=== PATIENT | male | born 1950 | race Caucasian/White ===

== ENCOUNTER 2016-07-19 21:10 | Inpatient (IN) ==
--- NOTE | 2016-07-19 21:42 | Emergency Department Note ---
Disposition Clinical Impression: Alcoholic cirrhosis of liver with ascites, Portal hypertension, Thrombosis Disposition: Admitted As Inpatient Condition: Fair Time of Disposition: 00:17 Abdominal Pain HPI - General Chief Complaint: ED Abdominal Pain Stated Complaint: abdominal pain Time Seen by Provider: 07/19/16 21:20 Source: patient Mode of arrival: EMS Limitations: no limitations Nursing Notes Reviewed: Yes Vital Signs Reviewed: Yes - History of Present Illness HPI Narrative: Patient is a 66-year-old male who presents to [facility] ED with a chief complaint of abdominal distention and discomfort. States his symptoms and worsening over the last week. Past medical history significant for alcoholic cirrhosis of the liver with prior paracentesis done in May 2016 at the [facility] in [place]. Patient denies any nausea, vomiting, fever or chills. States he has had some urinary retention and has been able to minimally urinate for the last 6 days. States the pain is generalized and constant. Patient was initially seen at the [facility] urgent care and transferred over for concern for worsening ascites or SBP. Patient has a hx of alcohol abuse and stopped drinking approximately 2 weeks ago. Pt Subjective Complaint: abdominal pain Onset (ago): day(s) Consistency: Worsening Pain Severity: moderate Pain Scale: 6 Quality: aching Radiation: none Migration to: no migration Improves with: nothing Worsens with: nothing Context: history of similar episodes Associated symptoms: Denies: nausea, vomiting, diarrhea, fever, chills Treatments prior to arrival: none - Related Data Home Medications Medication Instructions Recorded Confirmed Carvedilol [Coreg] 6.25 mg PO BIDWM 07/19/16 07/19/16 Furosemide [Lasix] 80 mg PO BID 07/19/16 07/19/16 Multivitamin [Multi-Day Vitamins] 1 each PO DAILY 07/19/16 07/19/16 Pantoprazole Sodium [Protonix] 40 mg PO DAILY 07/19/16 07/19/16 Spironolactone [Aldactone] 100 mg PO DAILY 07/19/16 07/19/16 Allergies Allergy/AdvReac Type Severity Reaction Status Date / Time No Known Allergies Allergy Verified 07/19/16 21:14 All systems ED: reviewed and negative except as stated. Abdominal Pain PMH - Past Medical History Medical history: Reports: cirrhosis, other Male Surgical History: Reports: other Psychiatric history: Reports: no psych history - Social History Smoking status: Current every day smoker Alcohol use: Reports: none Drug use: Reports: none Physical Exam - General Limitations: physical limitation General appearance: alert - Head Head exam: atraumatic, normocephalic, normal inspection - Eye Eye exam: Present: normal appearance, PERRL, EOMI - ENT ENT exam: normal exam, normal oropharynx, mucous membranes moist - Neck Neck exam: Present: normal inspection, full ROM, trachea midline - Chest Chest inspection: Present: normal inspection, symmetric chest wall rise - Respiratory Respiratory exam: Present: normal lung sounds bilaterally - Cardiovascular Cardiovascular exam: Present: regular rate, normal rhythm, normal heart sounds - Abdominal Exam Abdominal exam: Present: tenderness, distention, diminished bowel sounds Abdominal tenderness: Present: diffuse, moderate - Extremities Exam Extremities exam: Present: pedal edema - Back Exam Back exam: Present: normal inspection, full ROM. Absent: tenderness - Neurological Exam Neurological exam: Present: alert, oriented X3 - Psychiatric Psychiatric exam: Present: normal affect, normal mood - Skin Skin exam: Present: warm, dry, intact, normal color Course Course Narrative: Patient seen and examined. A large amount of ascites in the abdomen. No problems with shortness of breath. Ascites confirmed with bedside ultrasound. Patient is afebrile. We will do abdominal labs and CT abdomen and pelvis with IV contrast. - Reevaluation(s) Reevaluation #1: Lab work shows some mild pancytopenia. I received a call from the radiologist states there is a large amount of ascites as well as cirrhosis of the liver and portal hypertension. There appears to be nonocclusive thrombosis within the portal and splenic veins as well as the superior mesenteric vein. I spoke with hospitalist about admission. Patient has been accepted. Time: 00:15 Vital Signs Temperature 97.6 F 07/19/16 21:15 Pulse Rate 90 07/19/16 21:15 Respiratory Rate 18 07/19/16 21:15 Blood Pressure 124/91 07/19/16 21:15 O2 Sat by Pulse Oximetry 100 07/19/16 21:15 Temperature 98.5 F 07/20/16 04:19 Pulse Rate 92 07/20/16 04:19 Respiratory Rate 17 07/20/16 04:19 Blood Pressure 114/85 07/20/16 04:19 O2 Sat by Pulse Oximetry 98 07/20/16 04:19 Oxygen Delivery Oxygen Delivery Room Air Abdominal Pain - Medical Records Medical records reviewed: Yes I reviewed the patient's medical records. - Lab Data Lab results reviewed: Yes I reviewed the patient's lab results. Result diagrams: 07/19/16 21:36 07/19/16 21:36 Lab Results 07/19/16 07/19/16 07/19/16 Range/Units 21:36 21:36 21:36 WBC 3.8 L (4.3-11.1) K/mcL RBC 3.96 L (4.19-5.50) M/mcL Hgb 11.2 L (12.9-16.9) g/dL Hct 35.4 L (37.5-50.1) % MCV 89.4 (83.0-100.0) fL MCH 28.3 (28.0-33.3) pg MCHC 31.6 (31.6-35.5) g/dL RDW 18.4 H (11.5-14.5) % Plt Count 72 L (140-400) K/mcL MPV 10.9 (9.4-12.4) fL Immature Gran % 0.3 (0-4) % Seg Neutrophils % 73.9 % Lymphocytes % 17.3 % Monocytes % 6.4 % Eosinophils % 1.6 % Basophils % 0.5 % Neutrophils # 2.8 (1.6-8.9) K/mcL Lymphocytes # 0.7 (0.6-4.6) K/mcL Monocytes # 0.2 (0.0-1.3) K/mcL Eosinophils # 0.1 (0.0-0.6) K/mcL Basophils # 0.0 (0.0-0.2) K/mcL PT 13.3 H (9.4-12.1) Seconds INR 1.2 APTT 31.1 (26.0-36.0) Seconds Sodium 141 (136-145) mEq/L Potassium 4.6 H (3.5-4.5) mEq/L Chloride 109 (98-109) mEq/L Carbon Dioxide 22 (19-29) mEq/L BUN 12 (8-26) mg/dL Creatinine 0.94 (0.72-1.25) mg/dL Est GFR ( Amer) > 60 (> 60) Est GFR (Non-Af Amer) > 60 (> 60) BUN/Creatinine Ratio 13 (6-26) Glucose 114 H (70-99) mg/dL POC Glucose (58-89) Calculated Osmolality 293 (280-300) Lactic Acid (0.5-2.2) mmol/L Calcium 8.9 (8.6-10.8) mg/dL Total Bilirubin 0.6 (0.2-1.2) mg/dL Direct Bilirubin 0.3 (0.0-0.5) mg/dL Indirect Bilirubin 0.3 (0.0-1.2) mg/dL AST 36 H (5-34) Units/L ALT 20 (0-55) Units/L Alkaline Phosphatase 92 (38-126) Units/L Serum Total Protein 7.2 (6.0-8.3) g/dL Albumin 3.3 L (3.5-5.0) g/dL Globulin 3.9 H (2.4-3.5) g/dL Albumin/Globulin Ratio 0.8 L (1.1-2.2) Lipase 54 (8-78) Units/L Urine Color (Yellow) Urine Clarity (Clear) Urine pH (5.0-8.0) pH Units Ur Specific [place] (1.010-1.025) Urine Protein (Neg-Trace) mg/dL Urine Glucose (UA) (Normal) mg/dL Urine Ketones (Negative) mg/dL Urine Blood (Negative) Urine Nitrite (Negative) Urine Bilirubin (Negative) Urine Urobilinogen (Normal) mg/dL Ur Leukocyte Esterase (Negative) Urine Microscopic WBC (0-3) per hpf Ur Squamous Epith Cells (None-Few) per lpf Amorphous Sediment (Few) Urine Bacteria (None-Few) per hpf Ur Culture Indicated? (NO) 07/19/16 07/19/16 07/20/16 Range/Units 22:50 22:50 01:25 WBC (4.3-11.1) K/mcL RBC (4.19-5.50) M/mcL Hgb (12.9-16.9) g/dL Hct (37.5-50.1) % MCV (83.0-100.0) fL MCH (28.0-33.3) pg MCHC (31.6-35.5) g/dL RDW (11.5-14.5) % Plt Count (140-400) K/mcL MPV (9.4-12.4) fL Immature Gran % (0-4) % Seg Neutrophils % % Lymphocytes % % Monocytes % % Eosinophils % % Basophils % % Neutrophils # (1.6-8.9) K/mcL Lymphocytes # (0.6-4.6) K/mcL Monocytes # (0.0-1.3) K/mcL Eosinophils # (0.0-0.6) K/mcL Basophils # (0.0-0.2) K/mcL PT (9.4-12.1) Seconds INR APTT (26.0-36.0) Seconds Sodium (136-145) mEq/L Potassium (3.5-4.5) mEq/L Chloride (98-109) mEq/L Carbon Dioxide (19-29) mEq/L BUN (8-26) mg/dL Creatinine (0.72-1.25) mg/dL Est GFR ( Amer) (> 60) Est GFR (Non-Af Amer) (> 60) BUN/Creatinine Ratio (6-26) Glucose (70-99) mg/dL POC Glucose 116 H (58-89) Calculated Osmolality (280-300) Lactic Acid 2.1 (0.5-2.2) mmol/L Calcium (8.6-10.8) mg/dL Total Bilirubin (0.2-1.2) mg/dL Direct Bilirubin (0.0-0.5) mg/dL Indirect Bilirubin (0.0-1.2) mg/dL AST (5-34) Units/L ALT (0-55) Units/L Alkaline Phosphatase (38-126) Units/L Serum Total Protein (6.0-8.3) g/dL Albumin (3.5-5.0) g/dL Globulin (2.4-3.5) g/dL Albumin/Globulin Ratio (1.1-2.2) Lipase (8-78) Units/L Urine Color Yellow (Yellow) Urine Clarity Slightly Cloudy A (Clear) Urine pH 5.5 (5.0-8.0) pH Units Ur Specific [place] 1.025 (1.010-1.025) Urine Protein 30 H (Neg-Trace) mg/dL Urine Glucose (UA) Normal (Normal) mg/dL Urine Ketones Trace H (Negative) mg/dL Urine Blood Negative (Negative) Urine Nitrite Negative (Negative) Urine Bilirubin Small H (Negative) Urine Urobilinogen Normal (Normal) mg/dL Ur Leukocyte Esterase Negative (Negative) Urine Microscopic WBC 0-3 (0-3) per hpf Ur Squamous Epith Cells Few (None-Few) per lpf Amorphous Sediment Few (Few) Urine Bacteria Many H (None-Few) per hpf Ur Culture Indicated? NO (NO) - Radiology Data Radiology results reviewed: Yes I reviewed the patient's radiology results. Abdomen/Pelvis CT 07/19/16 21:25 IMPRESSION: Cirrhosis and portal hypertension. Nonocclusive thrombus within the superior aspect of the superior mesenteric vein, main portal vein, splenic vein, and intrahepatic portal veins. Large volume ascites. Findings discussed with Dr. Conti 07/19/2016 at approximately 10:58 p.m. D/ / Rhonda Yusuf MD / Rhonda Yusuf MD Interpreting Provider: Rhonda Yusuf MD Attestation Statement - Attestation Attestation: I personally interviewed and examined this patient and my medical decision- making was reviewed with the ED Resident Physician, Dr. Conti. I agree with the documented findings, disposition and treatment plan as described in the documentation. Patient is a 66-year-old male who was sent to us for worsening abdominal distention. Patient has a history of alcoholic liver disease with cirrhosis. According to family who is with him apparently the patient just recently relocated here from [place] and has no local physicians GI specialist or anyone that he is connected with at this time. Patient is here for worsening abdominal distention and pain, as well as difficulty urinating and urinary retention for which a Bonds catheter was placed prior to arrival to the emergency department. Patient with significant abdominal distention, but nontender to palpation. Patient is well-appearing and comfortable, in no signs of distress. Vital signs are stable he is afebrile and blood pressure is stable at this time. Patient denies any shortness of breath, no chest pain, no nausea vomiting, no fevers chills, no flank pain, and no dysuria. Recent significant medical history per patient is that he was in the [place] area in May of this year, and was developing some worsening shortness of breath. Patient presented to the emergency room there and was admitted to [facility] in [place]. Reviewing paperwork patient brought with him apparently he had developed endocarditis and sepsis and was hospitalized in ICU. Patient states during his hospitalization they actually did a paracentesis to drain fluid off his abdomen and do testing on the fluid. Patient states this is the first time he has ever had fluid drained off his abdomen secondary to his liver disease. He has not followed up with anyone since that hospitalization. ED evaluation unremarkable, patient will be admitted ascites.
[2016-07-19 21:43] LABS: Basophils % 0.5 %; Eosinophils # 0.1 K/mcL (0.0-0.6); Eosinophils % 1.6 %; Hematocrit 35.4 % (37.5-50.1); Hemoglobin 11.2 g/dL (12.9-16.9); Immature Granulocytes % 0.3 % (0-4); Lymphocytes # 0.7 K/mcL (0.6-4.6); Lymphocytes % 17.3 %; Mean Corpuscular HGB Conc 31.6 g/dL (31.6-35.5); Mean Corpuscular Hemoglobin 28.3 pg (28.0-33.3); Mean Corpuscular Volume 89.4 fL (83.0-100.0); Mean Platelet Volume 10.9 fL (9.4-12.4); Monocytes # 0.2 K/mcL (0.0-1.3); Monocytes % 6.4 %; Neutrophils # 2.8 K/mcL (1.6-8.9); Red Blood Count 3.96 M/mcL (4.19-5.50); Red Cell Distribution Width 18.4 % (11.5-14.5); Segmented Neutrophils % 73.9 %
[2016-07-19 22:00] LABS: Alanine Aminotransferase 20 Units/L (0-55); Albumin 3.3 g/dL (3.5-5.0); Albumin/Globulin Ratio 0.8 (1.1-2.2); Alkaline Phosphatase 92 Units/L (38-126); Aspartate Amino Transferase 36 Units/L (5-34); BUN/Creatinine Ratio 13 (6-26); Bilirubin,Direct 0.3 mg/dL (0.0-0.5); Bilirubin,Indirect 0.3 mg/dL (0.0-1.2); Bilirubin,Total 0.6 mg/dL (0.2-1.2); Blood Urea Nitrogen 12 mg/dL (8-26); Calcium 8.9 mg/dL (8.6-10.8); Carbon Dioxide 22 mEq/L (19-29); Chloride 109 mEq/L (98-109); Globulin 3.9 g/dL (2.4-3.5); Glucose 114 mg/dL (70-99); Lipase 54 Units/L (8-78); Osmolality,Calculated 293 (280-300); Potassium 4.6 mEq/L (3.5-4.5); Sodium 141 mEq/L (136-145); Total Protein 7.2 g/dL (6.0-8.3); eGFR For African Americans > 60 (> 60); eGFR For Non-African Americans > 60 (> 60)
[2016-07-19 22:03] LABS: Platelet Count 72 K/mcL (140-400)
[2016-07-19 23:19] LABS: INR 1.2; Prothrombin Time 13.3 Seconds (9.4-12.1)
[2016-07-19 23:21] LABS: Bilirubin,Urine Small (Negative); Blood,Urine Negative (Negative); Clarity,Urine Slightly Cloudy (Clear); Color,Urine Yellow (Yellow); Glucose,Urine (UA) Normal (Normal); Ketones,Urine Trace mg/dL (Negative); Leukocyte Esterase,Urine Negative (Negative); Nitrite,Urine Negative (Negative); PH,Urine 5.5 pH Units (5.0-8.0); Protein,Urine 30 mg/dL (Neg-Trace); Specific Gravity,Urine 1.025 (1.010-1.025); Urobilinogen,Urine Normal (Normal)
[2016-07-19 23:22] LABS: Activated Partial Thrombo Time 31.1 Seconds (26.0-36.0)
[2016-07-19 23:27] LABS: Bacteria,Urine Many per hpf (None-Few); Squamous Epithelial Cell,Urine Few per lpf (None-Few)
[2016-07-19 23:28] LABS: Amorphous Sediment,Urine Few (Few); WBC,Urine 0-3 per hpf (0-3)
[2016-07-20] MEDS ORDERED: Ondansetron ODT 4 MG TAB.RAPDIS SL PRN (04:18)
[2016-07-20] MEDS ORDERED: Naloxone 0.4 MG/ML INJ IVP PRN (04:18)
--- NOTE | 2016-07-20 04:49 | Internal Med History&Physical ---
<Elysia Hernadez - Last Filed: 07/20/16 06:06> Date of Encounter: 07/20/16 Time of Encounter: 04:49 Assessment and Plan (1) Alcoholic cirrhosis of liver with ascites Current visit: Yes Status: Acute Patient with abdominal distention. Has known history of alcoholic cirrhosis. CT scan showed large amount of ascites. He reports one previous instance of significant abdominal distention requiring 2 different paracentesis in one week while at the [facility] in [place] May of this year. Patient will require paracentesis this admission. INR appropriate 1.2. 1. Paracentesis line 2. Will start daily dose of Lasix and spiralactone. (2) Thrombosis Current visit: Yes Status: Acute CT scan revealed a nonocclusive thrombus in the superior aspect of the SMV, main portal vein, splenic vein and intrahepatic portal veins. Patient does not have any abdominal pain or symptoms suggestive of mesenteric ischemia. However this may be contributed to patients rapidly rekindling ascites. Discussion will need to be had concerning anticoagulation. Patient does have a history of esophageal variceal bleeding requiring banding suggesting patient may not be appropriate for anticoagulation. Patient has not seen any gastrointestinal specialists since moving to the . Will consult [facility] for their recommendations concerning both thrombus and his liver disease. Patient may also require consult from hematology. 1. Consult to [facility] 2. Will hold on anticoagulation at this time. (3) Urinary retention Current visit: Yes Status: Acute Patient with acute urinary retention. Patient reports no history of BPH or problems with urination. Patient reports improvement after placement of fully. We will start tamsulosin daily. Patient require voiding trial prior to discharge from hospital. 1. Tamsulosin daily. 2. Fully in place. Remove when indicated for a voiding trial. (4) Pancytopenia Current visit: Yes Status: Acute Pancytopenia likely secondary to chronic liver disease. We will continue to monitor. (5) Portal hypertension Current visit: Yes Status: Acute (6) DVT prophylaxis Current visit: Yes Status: Acute STDs for DVT prophylaxis. Internal Medicine - H&P: HPI Chief complaint: Abdominal distention Admitted From: Emergency Dept Plans for Post Hospital Care: Home History of present illness: Mr. Paul is a 66 year old male with PMH of EtOH use, esophageal variceal bleeding s/p banding, infective endocarditis and alcoholic liver cirrhosis who presents with abdominal distention. Patient reports that over the last 6 days his belly has been getting progressively more distended and uncomfortable. He reports associated urinary retention for the past 6 days and pedal edema. He denies any fevers or chills, nausea or vomiting, shortness of breath, chest pain , diarrhea or constipation, or blood in urine or stool. Patient reports that this has happened once previously and required 2 separate abdominal taps in one week. This was in May 2016 when patient was being treated at the [facility] in [place] for infective endocarditis. Patient completed his 6 weeks of antibiotics. Patient recently moved back from [place] and has not established with any physicians and the only medication he is taking currently is a multivitamin. Patient denies any history of stroke or heart attack. Patient reports never being on anticoagulation or having any blood clots. He reports that he quit drinking alcohol 2 years ago. In the ED, patient is afebrile with vital signs within normal limits. Labs revealed pancytopenia with a white blood cell count of 3.8, hemoglobin of 11.2, and platelets 72. Patient's INR was 1.2. Albumin 3.3. CT abdomen and pelvis revealed cirrhosis, portal hypertension, large amount of ascites, and noninclusive thrombus in the superior aspect of the SMV, main portal vein, splenic vein, and intrahepatic portal system. On exam patient is awake and alert, answers questions appropriately. Pupils are equal and reactive. No scleral electorates or jaundice noted. Heart regular rate and rhythm. Lungs with fine leaving bilaterally. Abdomen significantly distended and uncomfortable upon palpation. No kaput medusa noted. One plus pedal edema bilaterally. Past Med Surg Social Fam HX - Past Medical History Medical history: cirrhosis, other Psychiatric history: no psych history - Social History Smoking Status: Current every day smoker Smokeless Tobacco Status: No Alcohol use: none Drug use: none - Family History Father Living Status: Hx Family Neurologic Disorders: Yes (CVA) Internal Medicine - H&P: Meds Carvedilol [Coreg] 6.25 mg PO BIDWM 07/19/16 [History] Furosemide [Lasix] 80 mg PO BID 07/19/16 [History] Multivitamin [Multi-Day Vitamins] 1 each PO DAILY 07/19/16 [History] Pantoprazole Sodium [Protonix] 40 mg PO DAILY 07/19/16 [History] Spironolactone [Aldactone] 100 mg PO DAILY 07/19/16 [History] Allergies No Known Allergies Allergy (Verified 07/19/16 21:14) All Systems PM: A 10-system review of systems was performed and is negative for pertinent findings except as documented above in the HPI. - Constitutional Constitutional: no chills, no fever(s) - EENT Eyes: no blurry vision, no change in vision - Cardiovascular Cardiovascular ROS IM: no chest pain, no dyspnea, no dyspnea on exertion, no edema, no irregular heart rhythm, no palpitations - Respiratory Respiratory: no cough, no dyspnea, no dyspnea on exertion, no wheezing - Gastrointestinal Gastrointestinal: abdominal pain, bloating, no constipation, no diarrhea, no hematemesis, no hematochezia, no melena, no nausea, no vomiting - Genitourinary Genitourinary ROS male: difficulty urinating - Musculoskeletal Musculoskeletal ROS IM: no arthralgias - Neurological Neurological ROS: no confusion, no headache(s) - Constitutional Vitals: Temp Pulse Resp BP Pulse Ox 98.5 F 92 17 114/85 98 07/20/16 04:19 07/20/16 04:19 07/20/16 04:19 07/20/16 04:19 07/20/16 04:19 General appearance: Present: A&O X 3, pleasant, no acute distress, answers questions appropriately - Head Head exam: Present: atraumatic, normal inspection, normocephalic - Eye Eye exam: Present: EOMI, normal appearance, PERRL, sclera anicteric - ENT ENT exam: Present: mucous membranes moist - Respiratory Respiratory exam: Present: wheezes. Absent: rales, respiratory distress, rhonchi, tachypnea - Cardiovascular Cardiovascular exam: Present: RRR - GI/Abdominal GI/Abdominal exam: Present: distended, firm, tenderness. Absent: guarding, hernia, rebound, rigid - Extremities Exam Extremities exam: Present: pedal edema, warm - Neurological Exam Neurological exam: Present: alert, CN II-XII intact, oriented X3, no focal deficits Internal Med - H&P Results - Labs CBC & Chem 7: 07/19/16 21:36 07/19/16 21:36 <Jovanny Neil R - Last Filed: 07/20/16 06:40> Date of Encounter: 07/20/16 Internal Medicine - H&P: HPI History of present illness: Mr. Paul is a 66 year old male All Systems PM: A 10-system review of systems was performed and is negative for pertinent findings except as documented above in the HPI. - Constitutional Vitals: Temp Pulse Resp BP Pulse Ox 98.5 F 92 17 114/85 98 07/20/16 04:19 07/20/16 04:19 07/20/16 04:19 07/20/16 04:19 07/20/16 04:19 Internal Med - H&P Results - Labs CBC & Chem 7: 07/19/16 21:36 07/19/16 21:36 - Attending Attestation I performed a history and physical examination of the patient and discussed his management with the Resident/Book Jacket Cover Machine Operator (Dr Hernadez). I reviewed the residents note and agree with the documented findings and plan of care, with additions as below. 66 Y/M with long history of alcohol abuse, chronic liver disease with portal hypertension and recent variceal bleed, presents with abdominal distension of 8 days duration. O/E: Tense ascites with umbilical hernia. Pedal edema present. Imaging shows large volume ascites, cirrhosis of liver and portal vein thrombus. A/P: Pt recently had variceal bleed and has thrombocytopenia - will consult GI, prior to starting anticoagulation with heparin / warfarin. Consider Hematology / oncology consult. He needs paracentesis. will start lasix, spironolactone and conside betablocker.
[2016-07-20] MEDS ORDERED: Furosemide 20 MG TABLET PO SCH ×2 (09:00)
[2016-07-20] MEDS ORDERED: Spironolactone 25 MG TABLET PO SCH ×2 (09:00)
[2016-07-20] MEDS ORDERED: Furosemide 20 MG TABLET PO ONE (09:50)
--- NOTE | 2016-07-20 11:23 | IR Procedure Note ---
Date of procedure: 07/20/16 Consent Obtained: Written consent Timeout: Correct patient and procedure verified, Correct site verified, Time out performed, Skin prep completed Local anesthetic: Lidocaine 1% Indications: Ascites Procedure Performed: Paracentesis Site/Technique: LLQ access Results/Findings: Draining straw colored fluid Estimated blood loss (cc): 3 Complications: None; Tolerated procedure well Post Procedure Treatment Plan: Monitoring in pts room
--- NOTE | 2016-07-20 11:34 | Gastroenterology Consult Note ---
<Rosendo Humphreys - Last Filed: 07/20/16 11:32> Date of Encounter: 07/20/16 Time of Encounter: 10:10 - Assessment and plan (1) Alcoholic cirrhosis of liver with ascites Current Visit: Yes Status: Acute Assessment and plan: Diagnosed 2 years ago in [place]. On admission MELD Na 8, Child-Espinal Class B, DF 13.5. Increase Lasix to 40 mg daily and aldactone to 100 mg daily. Pt had paracentesis in May 2016 in [place] with 4L drained. Pt having paracentesis today, send fluid to r/o SBP. Complete liver workup with labs and US. Pt thinking clearly, no confusion noted. Having 1-2 BM daily. (2) Pancytopenia Current Visit: Yes Status: Acute Assessment and plan: Secondary to cirrhosis. (3) Portal hypertension Current Visit: Yes Status: Acute Assessment and plan: Secondary to cirrhosis. (4) Thrombosis Current Visit: Yes Status: Acute Assessment and plan: Will discuss with Dr. Adams. - Time Spent With Patient Total time spent is greater than 50% in coordination of care (as documented) at patient's floor/unit and/or counseling patient: GI History of Present Illness - Data of Consult Patient: new to practice Consult date: 07/20/16 Requesting Physician: Ellyn Cook MD - Consult Narrative Reason for consult: Cirrhosis, ascites History of present illness: Mr. Paul is a 66 year old male with PMHx of alcohol abuse, esophageal variceal bleeding s/p banding, infective endocarditis, and alcoholic liver cirrhosis who presented to the ED with abdominal distention that has been worsening over the past 6 days. He denies any fevers, chills, nausea, vomiting, SOB, chest pain, diarrhea, constipation, melena, hematochezia, hematemesis. He reports that he quit drinking alcohol 2 years ago. Patient states that in May 2016 he required 2 paracentesis in one week. CT A/P showed cirrhosis and portal hypertension. Nonocclusive thrombus in the superior aspect of the superior mesenteric vein, main portal vein, splenic vein, and intrahepatic portal veins. Large volume ascites was also noted. Procedures: EGD with variceal banding. NSAIDs: None Anticoagulation: None Past Med Surg Social Fam HX - Past Medical History Medical history: cirrhosis, other Psychiatric history: no psych history - Social History Smoking Status: Current every day smoker Smokeless Tobacco Status: No Alcohol use: none Drug use: none - Family History Father Living Status: Hx Family Neurologic Disorders: Yes (CVA) - Gastrointestinal Gastrointestinal: Present: as per HPI - Constitutional Constitutional: as per HPI - EENT Eyes: as per HPI Ears: Present: as per HPI Nose, mouth and throat: Present: as per HPI - Cardiovascular Cardiovascular ROS: Present: as per HPI - Respiratory Respiratory IM: Present: as per HPI - Genitourinary Genitourinary: Absent: change in color, Urinary frequency - Neurological ROS Neurological GI: Present: as per HPI - Hematologic/Lymphatic Hematologic/Lymphatic pediatric: Present: as per HPI - Musculoskeletal Musculoskeletal ROS GI: Present: as per HPI - Integumentary Integumentary GI: Present: as per HPI - Psychiatric ROS Psychiatric GI: Present: as per HPI - Endocrine Endocrine IM: Present: as per HPI - Constitutional Vitals: Temp Pulse Resp BP Pulse Ox 97.4 F L 92 16 120/74 97 07/20/16 11:22 07/20/16 11:24 07/20/16 11:22 07/20/16 11:22 07/20/16 11:22 General appearance: Present: cooperative, A&O X 3, no acute distress, answers questions appropriately - Head Head exam: Present: atraumatic, normocephalic - Eye Eye exam: Present: normal appearance, sclera anicteric - ENT ENT exam: Present: mucous membranes moist - Neck Neck exam general surgery: Present: normal inspection, trachea midline - Respiratory Respiratory exam: Present: decreased breath sounds, CTAB. Absent: rales, rhonchi - Cardiovascular Cardiovascular exam: Present: RRR, +S1, +S2 - GI/Abdominal GI/Abdominal exam: Present: distended, soft, no peritoneal signs. Absent: firm , guarding, tenderness - Expanded GI/Abdominal Exam GI/Abdominal exam expanded: Present: ascites - Rectal Rectal exam: Present: deferred - Extremities Exam Extremities exam: Present: pedal edema, warm - Neurological Exam Neurological exam: Present: no focal deficits - Psychiatric Psychiatric exam: Present: normal affect, normal mood - Skin Skin exam: Present: dry, intact, normal color, warm Results - Labs CBC & Chem 7: 07/19/16 21:36 07/19/16 21:36 Labs: Last Result Calcium 8.9 mg/dL (8.6-10.8) 07/19/16 21:36 Entire Visit Hgb 11.2 g/dL (12.9-16.9) L 07/19/16 21:36 Hct 35.4 % (37.5-50.1) L 07/19/16 21:36 PT 13.3 Seconds (9.4-12.1) H 07/19/16 21:36 Total Bilirubin 0.6 mg/dL (0.2-1.2) 07/19/16 21:36 AST 36 Units/L (5-34) H 07/19/16 21:36 ALT 20 Units/L (0-55) 07/19/16 21:36 Lipase 54 Units/L (8-78) 07/19/16 21:36 - ABG ABG results: PT/INR, D-dimer PT 13.3 Seconds (9.4-12.1) H 07/19/16 21:36 Consult Discharge Plan - Plan [facility] - 08/02/16 2:30 pm (this appointment is with the Discharge team) <Monico Adams - Last Filed: 07/20/16 15:55> Time of Encounter: 14:00 - Time Spent With Patient Total time spent is greater than 50% in coordination of care (as documented) at patient's floor/unit and/or counseling patient: GI History of Present Illness - Data of Consult Requesting Physician: Ellyn Cook MD - Consult Narrative History of present illness: Mr. Paul is a 66 year old male - Constitutional Vitals: Temp Pulse Resp BP Pulse Ox 98.6 F 94 16 110/69 98 07/20/16 15:25 07/20/16 15:31 07/20/16 15:25 07/20/16 15:25 07/20/16 15:25 Results - Labs CBC & Chem 7: 07/20/16 12:00 07/20/16 12:00 Labs: Last Result Calcium 8.6 mg/dL (8.6-10.8) 07/20/16 12:00 Entire Visit Hgb 11.4 g/dL (12.9-16.9) L 07/20/16 12:00 Hct 37.4 % (37.5-50.1) L 07/20/16 12:00 PT 14.3 Seconds (9.4-12.1) H 07/20/16 12:00 Total Bilirubin 0.6 mg/dL (0.2-1.2) 07/20/16 12:00 AST 34 Units/L (5-34) 07/20/16 12:00 ALT 19 Units/L (0-55) 07/20/16 12:00 Lipase 54 Units/L (8-78) 07/19/16 21:36 - ABG ABG results: PT/INR, D-dimer PT 14.3 Seconds (9.4-12.1) H 07/20/16 12:00 - Attending Attestation I examined this patient and my medical decision-making was reviewed with the POST TENSIONING IRONWORKER HELPER/PA/Advanced Practice Nurse/Resident Physician. I agree with the documented findings, disposition and treatment plan as described except to the extent set forth below. EGD to f/u on vrices Will need anticog in next few weeks for his Portal venous thrombosis. Will refer to hepatology for transplant w/u and also management of poratl venous thrombosis as out pt
[2016-07-20 12:12] LABS: Basophils % 0.4 %; Eosinophils % 0.7 %; Hematocrit 37.4 % (37.5-50.1); Hemoglobin 11.4 g/dL (12.9-16.9); Immature Granulocytes % 0.4 % (0-4); Immature Platelets 2.3 % (1.1-6.1); Lymphocytes # 0.4 K/mcL (0.6-4.6); Lymphocytes % 14.2 %; Mean Corpuscular HGB Conc 30.5 g/dL (31.6-35.5); Mean Corpuscular Hemoglobin 27.4 pg (28.0-33.3); Mean Corpuscular Volume 89.9 fL (83.0-100.0); Mean Platelet Volume 10.2 fL (9.4-12.4); Monocytes # 0.1 K/mcL (0.0-1.3); Monocytes % 5.2 %; Neutrophils # 2.1 K/mcL (1.6-8.9); Red Blood Count 4.16 M/mcL (4.19-5.50); Red Cell Distribution Width 18.3 % (11.5-14.5); Segmented Neutrophils % 79.1 %
[2016-07-20 12:14] LABS: Platelet Count 54 K/mcL (140-400)
[2016-07-20 12:15] LABS: INR 1.3; Prothrombin Time 14.3 Seconds (9.4-12.1)
[2016-07-20 12:24] LABS: Alanine Aminotransferase 19 Units/L (0-55); Albumin 3.2 g/dL (3.5-5.0); Albumin/Globulin Ratio 0.8 (1.1-2.2); Alkaline Phosphatase 92 Units/L (38-126); Aspartate Amino Transferase 34 Units/L (5-34); BUN/Creatinine Ratio 14 (6-26); Bilirubin,Total 0.6 mg/dL (0.2-1.2); Blood Urea Nitrogen 13 mg/dL (8-26); Calcium 8.6 mg/dL (8.6-10.8); Carbon Dioxide 20 mEq/L (19-29); Chloride 108 mEq/L (98-109); Globulin 3.8 g/dL (2.4-3.5); Glucose 161 mg/dL (70-99); Magnesium 1.4 mg/dL (1.6-2.6); Osmolality,Calculated 292 (280-300); Phosphorous 3.1 mg/dL (2.3-4.7); Potassium 3.9 mEq/L (3.5-4.5); Sodium 139 mEq/L (136-145); eGFR For African Americans > 60 (> 60); eGFR For Non-African Americans > 60 (> 60)
[2016-07-20 12:31] LABS: Platelet Estimate Decreased (Normal)
[2016-07-20] MEDS ORDERED: ALBUMIN IVPB ONE (12:59)
[2016-07-20] MEDS ORDERED: Albumin 25% 12.5gm/50mL 12.5 GM/50 ML IV.SOLN IVPB ONE (12:59)
--- NOTE | 2016-07-20 13:44 | Internal Med Progress Note ---
Date of Encounter: 07/20/16 Time of Encounter: 12:15 - Assessment and plan (1) Alcoholic cirrhosis of liver with ascites Current Visit: Yes Status: Acute Assessment and plan: s/p Paracentesis with 10L of fluid removed Will transfuse albumin (8gm/L-40gm Albumin to be transfused) Will f/u culture Concern for SBP, will start Ceftriaxone 2gm IV qd GI consultation appreciated Spironolactone and Lasix doses increased will continue to monitor (2) Pancytopenia Current Visit: Yes Status: Acute Assessment and plan: Likely secondary to underlying liver disease will closely monitor Thrombocytopenia worsened from previous day. Will closely monitor and transfuse as needed No active bleeding reported at this time. (3) Portal hypertension Current Visit: Yes Status: Acute Assessment and plan: Secondary to liver cirrhosis (4) Thrombosis Current Visit: Yes Status: Acute Assessment and plan: Given thrombocytopenia,not a candidate for anticoagulation Will f/u with GI for any further recommendations (5) Urinary retention Current Visit: Yes Status: Acute Assessment and plan: Continue Flomax Bonds cath in place (6) DVT prophylaxis Current Visit: Yes Status: Acute Assessment and plan: IPCD - Subjective Interval history: Patient is a 66y/o male admitted for abdominal pain secondary to worsening ascites. Patient reports of being diagnosed with cirrhosis a few years back and had a paracentesis in May 2016. Patient seen and examined at bedside. S/P Paracentesis with removal of 10L of ascites fluid. Patient tolerated the procedure well and reports of feeling better at this time. Denies any sob or discomfort at this time. - Constitutional Vitals: Temp Pulse Resp BP Pulse Ox 97.4 F L 92 16 120/74 97 07/20/16 11:22 07/20/16 11:24 07/20/16 11:22 07/20/16 11:22 07/20/16 11:22 General appearance: Present: A&O X 3, pleasant, no acute distress, answers questions appropriately - Head Head exam: Present: atraumatic, normocephalic - Eye Eye exam: Present: normal appearance, conjuntiva pink, sclera anicteric - Respiratory Respiratory exam: Present: CTAB. Absent: respiratory distress, wheezes - Cardiovascular Cardiovascular exam: Present: RRR, +S1, +S2 - GI/Abdominal GI/Abdominal exam: Present: distended (mild ascites), normal bowel sounds, soft , no peritoneal signs. Absent: tenderness - Extremities Exam Extremities exam: Present: warm, radial pulses palpable and symetrical. Absent : calf tenderness, pedal edema, tenderness - Neurological Exam Neurological exam: Present: alert, oriented X3 - Psychiatric Psychiatric exam: Present: normal affect, normal mood Internal Medicine: Result - Labs CBC & Chem 7: 07/20/16 12:00 07/20/16 12:00 Labs: Short CBC 07/20/16 Range/Units 12:00 WBC 2.7 L (4.3-11.1) K/mcL Hgb 11.4 L (12.9-16.9) g/dL Hct 37.4 L (37.5-50.1) % Plt Count 54 L (140-400) K/mcL Neutrophils # 2.1 (1.6-8.9) K/mcL BMP 07/20/16 12:00 Sodium 139 Potassium 3.9 Chloride 108 Carbon Dioxide 20 BUN 13 Creatinine 0.95 Glucose 161 H Calcium 8.6 Liver Function 07/20/16 Range/Units 12:00 Total Bilirubin 0.6 (0.2-1.2) mg/dL AST 34 (5-34) Units/L ALT 19 (0-55) Units/L Alkaline Phosphatase 92 (38-126) Units/L Albumin 3.2 L (3.5-5.0) g/dL - ABG Interpretation ABG results: PT/INR, D-dimer PT 14.3 Seconds (9.4-12.1) H 07/20/16 12:00 - VTE Documentation of Mechanical Device: Intermittent pneumatic compression device Consult Discharge Plan - Plan [facility]: [facility] Provider[facility] - 08/02/16 2:30 pm (this appointment is with the Discharge team)
[2016-07-20 13:46] LABS: Hepatitis A Antibody IgM Nonreactive (Nonreactive); Hepatitis B Core IgM Nonreactive (Nonreactive); Hepatitis B Surface Antigen Nonreactive (Nonreactive); Hepatitis C Virus Antibody Nonreactive (Nonreactive)
[2016-07-20] MEDS ORDERED: *HR* FentaNYL (PF) 100 MCG/2 ML VIAL ONE (16:47)
[2016-07-20] MEDS ORDERED: *HR* Midazolam HCl 5 MG/5 ML VIAL IVP ONE (16:47)
[2016-07-20] MEDS ORDERED: Tetracaine/Benzocaine/Butamben 200MG/SPRAY (100SPY/BOT) MM ONE ×2 (17:15→17:22)
[2016-07-20] MEDS ORDERED: *HR* FentaNYL (PF) 100 MCG/2 ML VIAL IVP PRN ×2 (17:15→17:22)
[2016-07-20] MEDS ORDERED: Simethicone 40 MG/0.6 ML MLS IR ONE ×2 (17:15→17:22)
[2016-07-20] MEDS ORDERED: *HR* Midazolam HCl 5 MG/5 ML VIAL IVP PRN ×2 (17:15→17:22)
[2016-07-20] MEDS ORDERED: Octreotide 50 MCG/ML SYRINGE IVP ONE (17:33)
[2016-07-20] MEDS: Octreotide 400 MCG in 0.9 % Sodium Chloride 100 ML IVC SCH (18:10)
[2016-07-21] MEDS: Octreotide 400 MCG in 0.9 % Sodium Chloride 100 ML IVC SCH ×3 (01:50→20:06)
[2016-07-21 05:41] LABS: Basophils % 0.7 %; Hemoglobin 10.4 g/dL (12.9-16.9); Immature Granulocytes % 0.3 % (0-4); Mean Corpuscular Volume 89.4 fL (83.0-100.0); Red Cell Distribution Width 17.8 % (11.5-14.5)
[2016-07-21 05:43] LABS: Eosinophils # 0.1 K/mcL (0.0-0.6); Hematocrit 33.8 % (37.5-50.1); Immature Platelets 2.4 % (1.1-6.1); Lymphocytes # 0.5 K/mcL (0.6-4.6); Lymphocytes % 17.8 %; Mean Corpuscular HGB Conc 30.8 g/dL (31.6-35.5); Mean Corpuscular Hemoglobin 27.5 pg (28.0-33.3); Mean Platelet Volume 9.6 fL (9.4-12.4); Monocytes # 0.2 K/mcL (0.0-1.3); Monocytes % 7.6 %; Neutrophils # 2.2 K/mcL (1.6-8.9); Red Blood Count 3.78 M/mcL (4.19-5.50); Segmented Neutrophils % 71.6 %
[2016-07-21 05:45] LABS: Platelet Count 48 K/mcL (140-400)
[2016-07-21 05:54] LABS: BUN/Creatinine Ratio 14 (6-26); Blood Urea Nitrogen 11 mg/dL (8-26); Calcium 7.7 mg/dL (8.6-10.8); Carbon Dioxide 23 mEq/L (19-29); Chloride 108 mEq/L (98-109); Glucose 129 mg/dL (70-99); Magnesium 1.1 mg/dL (1.6-2.6); Osmolality,Calculated 285 (280-300); Phosphorous 3.4 mg/dL (2.3-4.7); Potassium 3.6 mEq/L (3.5-4.5); Sodium 137 mEq/L (136-145); eGFR For African Americans > 60 (> 60); eGFR For Non-African Americans > 60 (> 60)
[2016-07-21] MEDS ORDERED: Magnesium Sulfate 2 GM in D5% in Water 100 ML IVPB ONE (08:30)
[2016-07-21] MEDS: Furosemide 40 MG TABLET PO SCH (09:05)
[2016-07-21] MEDS ORDERED: Magnesium Sulfate 1 GM in D5% in Water 100 ML IVPB ONE (09:30)
--- NOTE | 2016-07-21 11:04 | Internal Med Progress Note ---
Date of Encounter: 07/21/16 Time of Encounter: 11:00 - Assessment and plan (1) Alcoholic cirrhosis of liver with ascites Current Visit: Yes Status: Acute Assessment and plan: s/p Paracentesis with 10L of fluid removed s/p transfusion of albumin (8gm/L-40gm Albumin to be transfused) Will f/u culture Concern for SBP, will start Ceftriaxone 2gm IV qd GI consultation appreciated Spironolactone and Lasix doses increased will continue to monitor (2) Pancytopenia Current Visit: Yes Status: Acute Assessment and plan: Likely secondary to underlying liver disease will closely monitor Thrombocytopenia worsened from previous day. Will closely monitor and transfuse as needed No active bleeding reported at this time. Hematology consultation with Dr. Nunez requested (3) Portal hypertension Current Visit: Yes Status: Acute Assessment and plan: Secondary to liver cirrhosis (4) Thrombosis Current Visit: Yes Status: Acute Assessment and plan: Given thrombocytopenia,not a candidate for anticoagulation Will f/u with GI for any further recommendations (5) Urinary retention Current Visit: Yes Status: Acute Assessment and plan: Continue Flomax Bonds cath in place (6) DVT prophylaxis Current Visit: Yes Status: Acute Assessment and plan: IPCD - Subjective Interval history: Patient is a 66y/o male admitted for abdominal pain secondary to worsening ascites. Patient reports of being diagnosed with cirrhosis a few years back and had a paracentesis in May 2016. Patient seen and examined at bedside. S/P Paracentesis with removal of 10L of ascites fluid on 07/21/16. Resting in bed and denies any discomfort at this time. - Constitutional Vitals: Temp Pulse Resp BP Pulse Ox 98.0 F 93 16 103/75 95 07/21/16 07:42 07/21/16 07:42 07/21/16 07:42 07/21/16 07:42 07/21/16 07:42 General appearance: Present: A&O X 3, pleasant, no acute distress, answers questions appropriately - Head Head exam: Present: atraumatic, normocephalic - Eye Eye exam: Present: normal appearance, conjuntiva pink, sclera anicteric - Respiratory Respiratory exam: Present: CTAB. Absent: respiratory distress, wheezes - Cardiovascular Cardiovascular exam: Present: RRR, +S1, +S2 - GI/Abdominal GI/Abdominal exam: Present: distended (ascites), normal bowel sounds, soft. Absent: tenderness - Extremities Exam Extremities exam: Present: warm, radial pulses palpable and symetrical. Absent : calf tenderness, pedal edema - Neurological Exam Neurological exam: Present: alert, oriented X3 - Psychiatric Psychiatric exam: Present: normal affect, normal mood Internal Medicine: Result - Labs CBC & Chem 7: 07/21/16 05:24 07/21/16 05:24 Labs: Short CBC 07/20/16 07/21/16 Range/Units 12:00 05:24 WBC 2.7 L 3.0 L (4.3-11.1) K/mcL Hgb 11.4 L 10.4 L (12.9-16.9) g/dL Hct 37.4 L 33.8 L (37.5-50.1) % Plt Count 54 L 48 L (140-400) K/mcL Neutrophils # 2.1 2.2 (1.6-8.9) K/mcL BMP 07/20/16 07/21/16 12:00 05:24 Sodium 139 137 Potassium 3.9 3.6 Chloride 108 108 Carbon Dioxide 20 23 BUN 13 11 Creatinine 0.95 0.80 Glucose 161 H 129 H Calcium 8.6 7.7 L Liver Function 07/20/16 Range/Units 12:00 Total Bilirubin 0.6 (0.2-1.2) mg/dL AST 34 (5-34) Units/L ALT 19 (0-55) Units/L Alkaline Phosphatase 92 (38-126) Units/L Albumin 3.2 L (3.5-5.0) g/dL - ABG Interpretation ABG results: PT/INR, D-dimer PT 14.3 Seconds (9.4-12.1) H 07/20/16 12:00 - Impressions Impressions Liver Ultrasound 07/20/16 16:00 IMPRESSION: Cirrhotic morphology of the liver. Ascites. D/ / Rhonda Yusuf MD / Rhonda Yusuf MD Interpreting Provider: Rhonda Yusuf MD - VTE Documentation of Mechanical Device: Intermittent pneumatic compression device Consult Discharge Plan - Plan [facility]errals: [facility] Provider[facility] - 08/02/16 2:30 pm (this appointment is with the Discharge team)
--- NOTE | 2016-07-21 11:47 | Gastroenterology Progress Note ---
<Rosendo Humphreys - Last Filed: 07/21/16 11:44> Date of Encounter: 07/21/16 Time of Encounter: 10:35 - Assessment and plan (1) Alcoholic cirrhosis of liver with ascites Current Visit: Yes Status: Acute Assessment and plan: S/P paracentesis with 10L fluid drained. Fluid cxs negative to date. EGD with grade III and large esophageal varices, incompletely eradicated, banded, portal hypertensive gastropathy. Hepatitis profile negative, remaining liver workup pending. Liver US c/w cirrhosis and ascites. Will refer pt to for possible liver transplant. Continue Lasix 40 mg daily and Aldactone 100 mg daily on discharge. If no bleeding noted, ok to discharge. (2) Pancytopenia Current Visit: Yes Status: Acute Assessment and plan: Secondary to cirrhosis. (3) Portal hypertension Current Visit: Yes Status: Acute Assessment and plan: Secondary to cirrhosis. (4) Thrombosis Current Visit: Yes Status: Acute Assessment and plan: Refer pt to for liver transplant and treatment of thrombus. - Time Spent With Patient Total time spent is greater than 50% in coordination of care (as documented) at patient's floor/unit and/or counseling patient: - Subjective Interval history: Pt reports feeling well s/p paracentesis with 10L of fluid removal. He is without acute complaint at this time. - Constitutional Vitals: Temp Pulse Resp BP Pulse Ox 97.9 F 85 18 112/76 97 07/21/16 11:03 07/21/16 11:03 07/21/16 11:03 07/21/16 11:03 07/21/16 11:03 General appearance: Present: cooperative, A&O X 3, no acute distress, answers questions appropriately - Head Head exam: Present: atraumatic, normocephalic - Eye Eye exam: Present: normal appearance, sclera anicteric - ENT ENT exam: Present: mucous membranes moist - Neck Neck exam general surgery: Present: normal inspection, trachea midline - Respiratory Respiratory exam: Present: CTAB. Absent: rales, rhonchi - Cardiovascular Cardiovascular exam: Present: RRR, +S1, +S2 - GI/Abdominal GI/Abdominal exam: Present: distended, firm, soft, no peritoneal signs. Absent : guarding, tenderness - Expanded GI/Abdominal Exam GI/Abdominal exam expanded: Present: ascites - Rectal Rectal exam: Present: deferred - Extremities Exam Extremities exam: Present: warm - Neurological Exam Neurological exam: Present: no focal deficits - Psychiatric Psychiatric exam: Present: normal affect, normal mood - Skin Skin exam: Present: dry, intact, normal color, warm Results - Labs CBC & Chem 7: 07/21/16 05:24 07/21/16 05:24 Labs: Last Result Calcium 7.7 mg/dL (8.6-10.8) L 07/21/16 05:24 Ferritin 121 ng/ml (22-275) 07/20/16 12:00 Entire Visit Hgb 10.4 g/dL (12.9-16.9) L 07/21/16 05:24 Hct 33.8 % (37.5-50.1) L 07/21/16 05:24 PT 14.3 Seconds (9.4-12.1) H 07/20/16 12:00 Ferritin 121 ng/ml (22-275) 07/20/16 12:00 Total Bilirubin 0.6 mg/dL (0.2-1.2) 07/20/16 12:00 AST 34 Units/L (5-34) 07/20/16 12:00 ALT 19 Units/L (0-55) 07/20/16 12:00 Ammonia 47 mcmol/L (18-72) 07/21/16 05:24 Lipase 54 Units/L (8-78) 07/19/16 21:36 - ABG ABG results: PT/INR, D-dimer PT 14.3 Seconds (9.4-12.1) H 07/20/16 12:00 - Impressions Impressions Liver Ultrasound 07/20/16 16:00 IMPRESSION: Cirrhotic morphology of the liver. Ascites. D/ / Rhonda Yusuf MD / Rhonda Yusuf MD Interpreting Provider: Rhonda Yusuf MD - VTE Documentation of Mechanical Device: Intermittent pneumatic compression device Consult Discharge Plan - Plan [facility]errals: [facility]Primary Care Provider[facility] - 08/02/16 2:30 pm (this appointment is with the Discharge team) <Monico Adams - Last Filed: 07/21/16 21:28> Time of Encounter: 14:00 - Time Spent With Patient Total time spent is greater than 50% in coordination of care (as documented) at patient's floor/unit and/or counseling patient: - Constitutional Vitals: Temp Pulse Resp BP Pulse Ox 98.1 F 98 18 120/85 97 07/21/16 20:13 07/21/16 20:13 07/21/16 20:13 07/21/16 20:13 07/21/16 20:13 Results - Labs CBC & Chem 7: 07/21/16 05:24 07/21/16 05:24 Labs: Last Result Calcium 7.7 mg/dL (8.6-10.8) L 07/21/16 05:24 Ferritin 121 ng/ml (22-275) 07/20/16 12:00 Entire Visit Hgb 10.4 g/dL (12.9-16.9) L 07/21/16 05:24 Hct 33.8 % (37.5-50.1) L 07/21/16 05:24 PT 14.3 Seconds (9.4-12.1) H 07/20/16 12:00 Ferritin 121 ng/ml (22-275) 07/20/16 12:00 Total Bilirubin 0.6 mg/dL (0.2-1.2) 07/20/16 12:00 AST 34 Units/L (5-34) 07/20/16 12:00 ALT 19 Units/L (0-55) 07/20/16 12:00 Ammonia 47 mcmol/L (18-72) 07/21/16 05:24 Lipase 54 Units/L (8-78) 07/19/16 21:36 - ABG ABG results: PT/INR, D-dimer PT 14.3 Seconds (9.4-12.1) H 07/20/16 12:00 - Attending Attestation I examined this patient and my medical decision-making was reviewed with the EQUIPMENT ANALYST/PA/Advanced Practice Nurse/Resident Physician. I agree with the documented findings, disposition and treatment plan as described except to the extent set forth below. D/c octreotide in am
[2016-07-22] MEDS: Octreotide 400 MCG in 0.9 % Sodium Chloride 100 ML IVC SCH (03:08)
[2016-07-22 05:18] LABS: Immature Granulocytes % 0.2 % (0-4)
[2016-07-22 05:20] LABS: Basophils % 0.4 %; Eosinophils # 0.1 K/mcL (0.0-0.6); Eosinophils % 1.1 %; Hematocrit 33.6 % (37.5-50.1); Hemoglobin 10.5 g/dL (12.9-16.9); Immature Platelets 3.1 % (1.1-6.1); Lymphocytes # 0.5 K/mcL (0.6-4.6); Lymphocytes % 11.4 %; Mean Corpuscular HGB Conc 31.3 g/dL (31.6-35.5); Mean Corpuscular Hemoglobin 27.3 pg (28.0-33.3); Mean Corpuscular Volume 87.3 fL (83.0-100.0); Mean Platelet Volume 9.9 fL (9.4-12.4); Monocytes # 0.3 K/mcL (0.0-1.3); Monocytes % 7.3 %; Neutrophils # 3.6 K/mcL (1.6-8.9); Red Blood Count 3.85 M/mcL (4.19-5.50); Red Cell Distribution Width 17.6 % (11.5-14.5); Segmented Neutrophils % 79.6 %
[2016-07-22 05:44] LABS: BUN/Creatinine Ratio 15 (6-26); Blood Urea Nitrogen 12 mg/dL (8-26); Calcium 7.7 mg/dL (8.6-10.8); Carbon Dioxide 21 mEq/L (19-29); Chloride 107 mEq/L (98-109); Glucose 136 mg/dL (70-99); Magnesium 1.6 mg/dL (1.6-2.6); Osmolality,Calculated 284 (280-300); Phosphorous 3.1 mg/dL (2.3-4.7); Potassium 3.6 mEq/L (3.5-4.5); Sodium 136 mEq/L (136-145); eGFR For African Americans > 60 (> 60); eGFR For Non-African Americans > 60 (> 60)
[2016-07-22 05:48] LABS: Platelet Count 49 K/mcL (140-400)
--- NOTE | 2016-07-22 06:12 | Oncology Inp Consult Note ---
Date of Encounter: 07/22/16 Time of Encounter: 10:43 - Data of Consult Patient: new to practice Consult date: 07/22/16 Requesting Physician: Ellyn Cook MD Primary Care Provider: [facility] - Consult Narrative Reason for consult: Pancytopenia, liver failure. History of present illness: Mr. Paul is a 66 year old seen in consultation regarding unexplained pancytopenia. He initially presented with progressive abdominal distention due to ascites from liver failure and a routine CBC showed pancytopenia with WBC 3.8, hemoglobin 11.2, platelet count 72,000. Anemia was normocytic variant and has been managed supportively. Abdominal imaging to evaluate revealed cirrhosis morphology associated large amount of ascites and features compatible with portal hypertension including a nonocclusive thrombus in the superior aspect of the SMV, main portal vein, splenic vein, intrahepatic portal systemic. He has subsequently had present is with drainage of more than 9 L of straw- colored fluid. I do not see any fluid studies performed. He is also being followed by GI and I reviewed Dr. Adams's most recent office report. Appreciate his input. He has had EGD which showed grade 3 esophageal varices status post banding. Portal hypertensive gastropathy. Patient has an established diagnosis of alcoholic liver cirrhosis which was diagnosed about 2 years ago elevated in [place]. He has not had any MEDICAL follow-up to this point. He was evaluated last May 2016 in [place] and had drainage of 4 L of fluid. He is not having any acute liver symptoms at this encephalopathy etc. Chronic hepatitis panel on initial admission was negative. Oncology is consulted re: evaluation and management of his unexplained pancytopenia. Patient seen and examined at bedside. Chart review for details of ongoing [facility] hospital team. I verified history of chronic liver disease outlined above with the patient today. He has been informed of low blood counts in the past but has not required any transfusion previously. At the time of exam, patient is comfortable in his management is in no obvious distress. He is anticipating discharge sometime today. Rest of past medical, surgical, family, social history detailed below and verified with patient today. Review of systems: 12 point review of systems performed with patient and positive findings noted in history of present illness. All other systems are negative: Physical exam: Vital Signs Temp 97.2 F L 07/22/16 04:30 Pulse 93 07/22/16 04:30 Resp 18 07/22/16 04:30 BP 110/75 07/22/16 04:30 Pulse Ox 96 07/22/16 04:30 GENERAL: Alert and oriented, chronically ill appearing. Mental Status: Affect appropriate for circumstances HEENT: Sclerae anicteric. No mucositis or thrush. No other oral or pharyngeal lesions or erythema. Skin: No rashes or petechiae. No evidence of skin malignancy Lymph nodes: No cervical, supraclavicular, axillary, or inguinal adenopathy. Lungs: Clear to auscultation bilaterally. Clear to percussion bilaterally. Cardiovascular: Regular rate and rhythm. No gallops, murmurs, or rubs. Abdomen: Soft, nontender; distended due to ascites No palpable organomegaly or masses palpable. Exam is limited due to ascites Extremities: No edema. No calf swelling or tenderness. No joint deformity. Neurologic: Alert, normal gait; no focal weakness or sensory abnormalities. Results: Laboratory Last Values WBC 4.5 K/mcL (4.3-11.1) 07/22/16 05:00 RBC 3.85 M/mcL (4.19-5.50) L 07/22/16 05:00 Hgb 10.5 g/dL (12.9-16.9) L 07/22/16 05:00 Hct 33.6 % (37.5-50.1) L 07/22/16 05:00 MCV 87.3 fL (83.0-100.0) 07/22/16 05:00 MCH 27.3 pg (28.0-33.3) L 07/22/16 05:00 MCHC 31.3 g/dL (31.6-35.5) L 07/22/16 05:00 RDW 17.6 % (11.5-14.5) H 07/22/16 05:00 Plt Count 49 K/mcL (140-400) L 07/22/16 05:00 MPV 9.9 fL (9.4-12.4) 07/22/16 05:00 Immature Gran % 0.3 % (0-4) 07/21/16 05:24 Seg Neutrophils % 71.6 % 07/21/16 05:24 Lymphocytes % 17.8 % 07/21/16 05:24 Monocytes % 7.6 % 07/21/16 05:24 Eosinophils % 2.0 % 07/21/16 05:24 Basophils % 0.7 % 07/21/16 05:24 Neutrophils # 2.2 K/mcL (1.6-8.9) 07/21/16 05:24 Lymphocytes # 0.5 K/mcL (0.6-4.6) L 07/21/16 05:24 Monocytes # 0.2 K/mcL (0.0-1.3) 07/21/16 05:24 Eosinophils # 0.1 K/mcL (0.0-0.6) 07/21/16 05:24 Basophils # 0.0 K/mcL (0.0-0.2) 07/21/16 05:24 Platelet Estimate Decreased (Normal) L 07/20/16 12:00 Immature Plt Fraction 3.1 % (1.1-6.1) 07/22/16 05:00 PT 14.3 Seconds (9.4-12.1) H 07/20/16 12:00 INR 1.3 07/20/16 12:00 APTT 31.1 Seconds (26.0-36.0) 07/19/16 21:36 Sodium 136 mEq/L (136-145) 07/22/16 05:00 Potassium 3.6 mEq/L (3.5-4.5) 07/22/16 05:00 Chloride 107 mEq/L (98-109) 07/22/16 05:00 Carbon Dioxide 21 mEq/L (19-29) 07/22/16 05:00 BUN 12 mg/dL (8-26) 07/22/16 05:00 Creatinine 0.82 mg/dL (0.72-1.25) 07/22/16 05:00 Est GFR ( Amer) > 60 (> 60) 07/22/16 05:00 Est GFR (Non-Af Amer) > 60 (> 60) 07/22/16 05:00 BUN/Creatinine Ratio 15 (6-26) 07/22/16 05:00 Glucose 136 mg/dL (70-99) H 07/22/16 05:00 POC Glucose 116 (58-89) H 07/20/16 01:25 Calculated Osmolality 284 (280-300) 07/22/16 05:00 Lactic Acid 2.1 mmol/L (0.5-2.2) 07/19/16 22:50 Calcium 7.7 mg/dL (8.6-10.8) L 07/22/16 05:00 Phosphorus 3.1 mg/dL (2.3-4.7) 07/22/16 05:00 Magnesium 1.6 mg/dL (1.6-2.6) 07/22/16 05:00 Ferritin 121 ng/ml (22-275) 07/20/16 12:00 Total Bilirubin 0.6 mg/dL (0.2-1.2) 07/20/16 12:00 Direct Bilirubin 0.3 mg/dL (0.0-0.5) 07/19/16 21:36 Indirect Bilirubin 0.3 mg/dL (0.0-1.2) 07/19/16 21:36 AST 34 Units/L (5-34) 07/20/16 12:00 ALT 19 Units/L (0-55) 07/20/16 12:00 Alkaline Phosphatase 92 Units/L (38-126) 07/20/16 12:00 Ammonia 47 mcmol/L (18-72) 07/21/16 05:24 Serum Total Protein 7.0 g/dL (6.0-8.3) 07/20/16 12:00 Albumin 3.2 g/dL (3.5-5.0) L 07/20/16 12:00 Globulin 3.8 g/dL (2.4-3.5) H 07/20/16 12:00 Albumin/Globulin Ratio 0.8 (1.1-2.2) L 07/20/16 12:00 Lipase 54 Units/L (8-78) 07/19/16 21:36 Urine Color Yellow (Yellow) 07/19/16 22:50 Urine Clarity Slightly Cloudy (Clear) A 07/19/16 22:50 Urine pH 5.5 pH Units (5.0-8.0) 07/19/16 22:50 Ur Specific [place] 1.025 (1.010-1.025) 07/19/16 22:50 Urine Protein 30 mg/dL (Neg-Trace) H 07/19/16 22:50 Urine Glucose (UA) Normal mg/dL (Normal) 07/19/16 22:50 Urine Ketones Trace mg/dL (Negative) H 07/19/16 22:50 Urine Blood Negative (Negative) 07/19/16 22:50 Urine Nitrite Negative (Negative) 07/19/16 22:50 Urine Bilirubin Small (Negative) H 07/19/16 22:50 Urine Urobilinogen Normal mg/dL (Normal) 07/19/16 22:50 Ur Leukocyte Esterase Negative (Negative) 07/19/16 22:50 Urine Microscopic WBC 0-3 per hpf (0-3) 07/19/16 22:50 Ur Squamous Epith Cells Few per lpf (None-Few) 07/19/16 22:50 Amorphous Sediment Few (Few) 07/19/16 22:50 Urine Bacteria Many per hpf (None-Few) H 07/19/16 22:50 Ur Culture Indicated? NO (NO) 07/19/16 22:50 Hepatitis A IgM Ab Nonreactive (Nonreactive) 07/20/16 12:00 Hep Bs Antigen Nonreactive (Nonreactive) 07/20/16 12:00 Hep B Core IgM Ab Nonreactive (Nonreactive) 07/20/16 12:00 Hepatitis C Ab Screen Nonreactive (Nonreactive) 07/20/16 12:00 Radiographic studies: I personally reviewed and interpreted patient's most recent imaging studies dated 07/19/16. I discussed the findings with the patient today. Abdomen/Pelvis CT 07/19/16 21:25 IMPRESSION: Cirrhosis and portal hypertension. Nonocclusive thrombus within the superior aspect of the superior mesenteric vein, main portal vein, splenic vein, and intrahepatic portal veins. Large volume ascites. Findings discussed with Dr. Conti 07/19/2016 at approximately 10:58 p.m. D/ / Rhonda Yusuf MD / Rhonda Yusuf MD Interpreting Provider: Rhonda Yusuf MD Paracentesis Ultrasound 07/20/16 00:00 IMPRESSION: Successful ultrasound guided paracentesis. D/ / Tu Mills MD / Tu Mills MD Interpreting Provider: Tu Mills MD Liver Ultrasound 07/20/16 16:00 IMPRESSION: Cirrhotic morphology of the liver. Ascites. D/ / Rhonda Yusuf MD / Rhonda Yusuf MD Interpreting Provider: Rhonda Yusuf MD Impression/recommendations: Pancytopenia: Likely due to his underlying chronic liver disease. I do not have any records of previous blood counts to get a sense of his CBC trajectory. His current cancer noncritical and no acute intervention needed. Recommend: Hematinic panel to look for B12, folic, B12 deficiency which may be contributing to his cytopenias and can impact bone marrow recovery. TSH, T4, to exclude possible contribution from thyroid dysfunction. Further workup to date on results of pending studies but we'll recommend transfusion support when necessary to maintain hemoglobin of 7 or greater, platelet count of 30,000 or greater unless he is actively bleeding in which case a lower threshold for transfusion may be indicated. Upon discharge, we'll make outpatient follow-up appointments for ongoing management of his pancytopenia. If cytopenias become an issue in the future and his potential invasive procedures, he may benefit from growth factor support including TPO mimetic or ABUNDIO. 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 Its very common finding with portal hypertension and may improve after management of patient's underlying portal hypertension. He has been started on regimen of diuretics per Dr. Adams No role for anticoagulation presently but may be beneficial if he has symptoms such as abdominal pain etc. I discussed my impression/recommendation with Dr. Cook. We'll follow the patient along side you during this hospitalization but please do not hesitate to call regarding interval hematologic questions as they arise. Thank you for your excellent ongoing care for allowing us to see him while in- house. This report was created using voice recognition software and may contain errors. It was signed but not edited to expedite communication. Past Med Surg Social Fam HX - Past Medical History Medical history: cirrhosis, other Psychiatric history: no psych history - Social History Smoking Status: Current every day smoker Smokeless Tobacco Status: No Alcohol use: none Drug use: none - Family History Father Living Status: Hx Family Neurologic Disorders: Yes (CVA) Medications and Allergies Carvedilol [Coreg] 6.25 mg PO BIDWM 07/19/16 [History] Multivitamin [Multi-Day Vitamins] 1 each PO DAILY 07/19/16 [History] Pantoprazole Sodium [Protonix] 40 mg PO DAILY 07/19/16 [History] Furosemide [Lasix] 40 mg PO DAILY #30 tablet 07/22/16 [Rx] Multivitamin [Multi-Day Vitamins] 1 each PO DAILY #30 tablet 07/22/16 [Rx] Pantoprazole Sodium [Protonix] 40 mg PO DAILY #30 tablet. 07/22/16 [Rx] Spironolactone [Aldactone] 100 mg PO DAILY #30 tablet 07/22/16 [Rx] Tamsulosin [Flomax] 0.4 mg PO DAILY #30 capsule 07/22/16 [Rx] Allergies No Known Allergies Allergy (Verified 07/19/16 21:14) Oncology - Exam - Constitutional Vitals: Temp Pulse Resp BP Pulse Ox 97.2 F L 93 18 110/75 96 07/22/16 04:30 07/22/16 04:30 07/22/16 04:30 07/22/16 04:30 07/22/16 04:30 Oncology - Results - Labs Labs: Short CBC 07/22/16 Range/Units 05:00 WBC 4.5 (4.3-11.1) K/mcL Hgb 10.5 L (12.9-16.9) g/dL Hct 33.6 L (37.5-50.1) % Plt Count 49 L (140-400) K/mcL BMP 07/22/16 05:00 Sodium 136 Potassium 3.6 Chloride 107 Carbon Dioxide 21 BUN 12 Creatinine 0.82 Glucose 136 H Calcium 7.7 L Consult Discharge Plan - Plan Instructions: Spironolactone (By mouth), Furosemide (By mouth), Tamsulosin (By mouth), Ascites (DC), Anemia (GEN) Additional Instructions: Please follow-up with your primary care physician within one week after discharge from the hospital. Please follow-up with gastroenterology within 1 week after discharge from the hospital. Please follow-up with hematology/oncology within 2-3 weeks after discharge from the hospital. Lasix dose has been decreased to 40 mg once daily and spironolactone as 100 mg once daily. Flomax has been added to your home regimen. Please resume all other home medications as per prescribed by your primary care physician. Please seek medical help if you have worsening shortness of breath, any acute episodes of active bleeding, or worsening abdominal pain. Referrals: [place],PCP [Primary Care Provider] - 08/02/16 2:30 pm (this appointment is with the Discharge team) Monico Adams MD [Partnered Physician] - 07/28/16 3:00 pm Nick Royal MD [Partnered Physician] - 08/12/16 9:10 am Prescriptions: Furosemide [Lasix] 40 mg PO DAILY #30 tablet Spironolactone [Aldactone] 100 mg PO DAILY #30 tablet Tamsulosin [Flomax] 0.4 mg PO DAILY #30 capsule
[2016-07-22 06:30] LABS: Anisocytosis 1+ (Not Present); Platelet Estimate Decreased (Normal)
[2016-07-22 07:45] VITALS: BP 113/77
[2016-07-22 07:45] LABS: AFP Tumor Marker Non-Pregnant 4 ng/mL (0-9)
[2016-07-22] MEDS: Furosemide 40 MG TABLET PO SCH (08:55)
--- NOTE | 2016-07-22 09:22 | Discharge Summary ---
Date of Encounter: 07/22/16 Time of Encounter: 09:14 - Discharge Diagnosis (1) Alcoholic cirrhosis of liver with ascites Priority: Primary Status: Acute (2) Pancytopenia Priority: Secondary Status: Chronic (3) Portal hypertension Priority: Secondary Status: Chronic (4) Thrombosis Priority: Secondary Status: Chronic (5) Urinary retention Priority: Secondary Status: Resolved (6) DVT prophylaxis Priority: Secondary Status: Acute - Discharge Medications Prescriptions: Furosemide [Lasix] 40 mg PO DAILY #30 tablet Spironolactone [Aldactone] 100 mg PO DAILY #30 tablet Tamsulosin [Flomax] 0.4 mg PO DAILY #30 capsule Home Medications: Carvedilol [Coreg] 6.25 mg PO BIDWM 07/19/16 [History] Multivitamin [Multi-Day Vitamins] 1 each PO DAILY 07/19/16 [History] Pantoprazole Sodium [Protonix] 40 mg PO DAILY 07/19/16 [History] Furosemide [Lasix] 40 mg PO DAILY #30 tablet 07/22/16 [Rx] Spironolactone [Aldactone] 100 mg PO DAILY #30 tablet 07/22/16 [Rx] Tamsulosin [Flomax] 0.4 mg PO DAILY #30 capsule 07/22/16 [Rx] Allergies/Adverse Reactions: Allergies No Known Allergies Allergy (Verified 07/19/16 21:14) Procedures/tests Complete & Pending: Procedures Performed prior 72 hours Category Date Time Status US liver [US] Routine Exams 07/20/16 16:00 Completed IR paracentesis ultrasound [IR] Routine IR 07/20/16 Completed Date of admission: 07/20/16 05:19 Primary care physician: PCP MARCELLA Consults: 07/20/16 07:23 Consult to Interventional Radiology [CONS] Stat Consulting Provider: Radiology Interventional Cols Reason for Consult: Paracentesis Call Completed: Yes 07/21/16 07:45 Consult to Oncology Hematology [CONS] Stat Consulting Provider: Topher Del Toro Reason for Consult: Pancytopenia Call Completed: Yes Discharging clinician: Ellyn Cook Anticipated date of discharge: 07/22/16 - Patient Status Disposition: Home, Self-Care Condition: Good Functional capacity at discharge: independent ambulation Overall status at discharge: patient is back to baseline - Discharge Instructions Follow Up With: MARCELLA,PCP [Primary Care Provider] - 08/02/16 2:30 pm (this appointment is with the Discharge team) Additional Instructions: Please follow-up with your primary care physician within one week after discharge from the hospital. Please follow-up with gastroenterology within 1 week after discharge from the hospital. Please follow-up with hematology/oncology within 2-3 weeks after discharge from the hospital. Lasix dose has been decreased to 40 mg once daily and spironolactone as 100 mg once daily. Flomax has been added to your home regimen. Please resume all other home medications as per prescribed by your primary care physician. Please seek medical help if you have worsening shortness of breath, any acute episodes of active bleeding, or worsening abdominal pain. - Diet and Activity Activity: resume usual activities as tolerated Diet: low salt diet Hospital course: Mr. Paul is a 66 year old male with past medical history of cirrhosis of the liver secondary to alcohol abuse, esophageal varices status post banding, recurrent ascites, portal hypertension who is admitted for management of abdominal pain secondary to worsening ascites. Patient underwent paracentesis done by interventional radiology, draining 10 L of ascites fluid. Patient was supplemented 40 g of albumin status post paracentesis. He was also noted to have nonocclusive thrombosis in the superior aspect of the SMV, main portal vein , splenic vein and intrahepatic portal veins. He was also noted to have pancytopenia. No anticoagulation was started due to the thrombocytopenia and hematology oncology was consulted. Patient's symptoms improved after paracentesis, and as per GI his spironolactone and Lasix doses were adjusted. Patient's pancytopenia is likely secondary to his chronic liver disease and outpatient follow-up with oncology is recommended. Patient will be discharged to home today with follow-up with GI, primary care physician, hematology/ oncology. He is given prescriptions for all his medications that were changed during this hospitalization. Patient is hemodynamically stable and demonstrates understanding of his diagnosis, and agrees with the discharge care plan. - Time Spent with Patient Total time spent providing and/or coordinating discharge services: Greater than 30 minutes - Constitutional Vitals: Temp Pulse Resp BP Pulse Ox 98.0 F 88 14 113/77 94 L 07/22/16 07:43 07/22/16 07:51 07/22/16 07:43 07/22/16 07:43 07/22/16 07:43 General appearance: Present: A&O X 3, pleasant, no acute distress, answers questions appropriately - Head Head exam: Present: atraumatic, normocephalic - Respiratory Respiratory exam: Present: CTAB. Absent: accessory muscle use, rales, rhonchi, wheezes - Cardiovascular Cardiovascular exam: Present: RRR, +S1, +S2. Absent: diastolic murmur, gallop, rubs, systolic murmur - GI/Abdominal GI/Abdominal exam: Present: distended (diffuse ascites), normal bowel sounds, soft, no peritoneal signs. Absent: tenderness - Extremities Exam Extremities exam: Present: warm, radial pulses palpable and symetrical. Absent : calf tenderness, cyanotic, pedal edema - Neurological Exam Neurological exam: Present: alert, oriented X3, no focal deficits - Psychiatric Psychiatric exam: Present: normal affect, normal mood - VTE Documentation of Mechanical Device: Graduated compression elastic hosiery
[2016-07-22 09:38] LABS: % Iron Saturation 13 % (20-55); Iron 29 mcg/dL (65-175); Transferrin 159 mg/dL (174-364)
[2016-07-22 10:26] LABS: Ferritin 110 ng/ml (22-275)
[2016-07-22 10:36] LABS: Folate 8.8 ng/mL (7.0-31.4)
[2016-07-22 12:39] LABS: F-Actin (sm muscle) Ab IgG 18 Units (0-19); Myeloperoxidase Ab 3 AU/mL (0-19); Serine Protease-3 Antibody 0 AU/mL (0-19)
[2016-07-22 12:40] LABS: ANA IgG by ELISA NONE DETECTED (None Detected)
[2016-07-22 15:27] LABS: Ceruloplasmin 38 mg/dL (17-54)
[2016-07-23 20:17] LABS: Alpha-1-Antitrypsin 188 mg/dL (90-200)
== END 2016-07-22 13:37 | disposition home or self-care (01) | DRG 432 ==
LOC: 2NNU 21:10 → EMEROO 21:10 → 2NNU 07-20 01:00
PROVIDERS: ADMIT Hospitalist; ATTEND Internal Medicine

== ENCOUNTER 2016-08-05 14:20 | Inpatient (IN) ==
--- NOTE | 2016-08-05 14:42 | Emergency Department Note ---
Disposition Clinical Impression: GI bleed Qualifiers: GI bleed type/associated pathology: unspecified gastrointestinal hemorrhage type Qualified Code(s): K92.2 - Gastrointestinal hemorrhage, unspecified Disposition: Admitted As Inpatient GI Bleed HPI - General Chief complaint: ED GI Bleed Stated complaint: GI Bleed Time Seen by Provider: 08/05/16 14:23 Source: patient, EMS Limitations: no limitations Nursing Notes Reviewed: Yes Vital Signs Reviewed: Yes - History of Present Illness Pt Subjective Complaint: gross bloody stools Onset (ago): day(s) (1) Consistency: intermittent Severity: moderate Improves with: nothing Worsens with: bowel movement Context: history of GI bleed, liver disease, known esophageal varices Associated symptoms: Reports: loss of appetite Treatments Prior to Arrival: none - Related Data Home Medications Medication Instructions Recorded Confirmed Furosemide [Lasix] 80 mg PO BID 08/05/16 08/05/16 Allergies Allergy/AdvReac Type Severity Reaction Status Date / Time No Known Allergies Allergy Verified 07/19/16 21:14 All systems ED: reviewed and negative except as stated. Constitutional: Denies: fever, chills Respiratory: Denies: cough, dyspnea Gastrointestinal: Denies: abdominal pain, hematochezia Past Medical History - Past Medical History Source: patient, old records reviewed, nursing notes reviewed Medical history: Reports: cirrhosis, other Psychiatric history: Reports: no psych history - Social History Smoking Status: Former smoker Smokeless Tobacco Status: No Alcohol use: Reports: none Drug use: Reports: none Physical Exam - General Limitations: no limitations General appearance: alert - Head Head exam: atraumatic, normocephalic, normal inspection - Eye Eye exam: Present: normal appearance, PERRL, EOMI - Expanded Eye Exam Pupils: Left: reactive - ENT ENT exam: normal exam, normal oropharynx, mucous membranes moist - Expanded ENT Exam External ear exam: Present: normal external inspection Mouth exam: Present: normal external inspection Teeth exam: Present: normal inspection Throat exam: Present: normal inspection - Neck Neck exam: Present: normal inspection, full ROM, trachea midline - Chest Chest inspection: Present: normal inspection, symmetric chest wall rise - Respiratory Respiratory exam: Present: normal lung sounds bilaterally - Cardiovascular Cardiovascular exam: Present: regular rate, normal rhythm, normal heart sounds - Abdominal Exam Abdominal exam: Present: distention, normal bowel sounds. Absent: tenderness - Rectal Exam Rectal exam: Present: other - Extremities Exam Extremities exam: Present: normal inspection, full ROM. Absent: tenderness, pedal edema - Expanded Upper Extremity Exam Shoulder exam: Present: normal inspection, full ROM Arm exam: Present: normal inspection, full ROM Elbow exam: Present: normal inspection, full ROM Forearm/Wrist exam: Present: normal inspection, full ROM Hand exam: Present: normal inspection, full ROM Vascular exam: Normal: capillary refill, radial pulse - Expanded Lower Extremity Exam Hip/Pelvis exam: Present: normal inspection, full ROM Upper leg exam: Present: normal inspection, full ROM Knee exam: Present: normal inspection, full ROM Lower leg exam: Present: normal inspection, full ROM Ankle exam: Present: normal inspection, full ROM Foot/toe exam: Present: normal inspection, full ROM Neurovascular/Tendon exam: Absent: motor deficit, sensory deficit, tendon deficit - Back Exam Back exam: Present: normal inspection, full ROM. Absent: tenderness - Neurological Exam Neurological exam: Present: alert, oriented X3 - Expanded Neurological Exam Patient oriented to: Present: person, place, time Coma Scale Eye Opening: Spontaneous Coma Scale Motor Response: Obeys Commands Coma Scale Verbal Response: Oriented Coma Scale Total: 15 - Psychiatric Psychiatric exam: Present: normal affect, normal mood - Skin Skin exam: Present: warm, dry, intact, normal color Course Vital Signs Temperature 97.8 F 08/05/16 14:23 Pulse Rate 88 08/05/16 14:23 Respiratory Rate 16 08/05/16 14:23 Blood Pressure 123/82 08/05/16 14:23 O2 Sat by Pulse Oximetry 100 08/05/16 14:23 Temperature 98 F 08/06/16 07:50 Pulse Rate 89 08/06/16 07:50 Respiratory Rate 15 08/06/16 07:50 Blood Pressure 115/77 08/06/16 07:50 O2 Sat by Pulse Oximetry 95 08/06/16 09:42 Oxygen Delivery Oxygen Delivery Room Air GI Bleed - Lab Data Result diagrams: 08/06/16 04:20 08/06/16 00:47 Lab Results 08/05/16 08/05/16 08/05/16 Range/Units 14:56 14:56 14:56 WBC 3.0 L (4.3-11.1) K/mcL RBC 3.65 L (4.19-5.50) M/mcL Hgb 10.1 L (12.9-16.9) g/dL Hct 32.3 L (37.5-50.1) % MCV 88.5 (83.0-100.0) fL MCH 27.7 L (28.0-33.3) pg MCHC 31.3 L (31.6-35.5) g/dL RDW 17.1 H (11.5-14.5) % Plt Count 73 L (140-400) K/mcL MPV 10.6 (9.4-12.4) fL Immature Gran % 0.3 (0-4) % Seg Neutrophils % 70.6 % Lymphocytes % 19.7 % Monocytes % 7.7 % Eosinophils % 1.0 % Basophils % 0.7 % Neutrophils # 2.1 (1.6-8.9) K/mcL Lymphocytes # 0.6 (0.6-4.6) K/mcL Monocytes # 0.2 (0.0-1.3) K/mcL Eosinophils # 0.0 (0.0-0.6) K/mcL Basophils # 0.0 (0.0-0.2) K/mcL Immature Plt Fraction 2.7 (1.1-6.1) % PT 13.3 H (9.4-12.1) Seconds INR 1.2 APTT 31.9 (26.0-36.0) Seconds Sodium 138 (136-145) mEq/L Potassium 3.5 (3.5-4.5) mEq/L Chloride 101 (98-109) mEq/L Carbon Dioxide 27 (19-29) mEq/L BUN 17 (8-26) mg/dL Creatinine 1.06 (0.72-1.25) mg/dL Est GFR ( Amer) > 60 (> 60) Est GFR (Non-Af Amer) > 60 (> 60) BUN/Creatinine Ratio 16 (6-26) Glucose 115 H (70-99) mg/dL Calculated Osmolality 288 (280-300) Calcium 9.0 (8.6-10.8) mg/dL Stool Occult Blood (Negative) Blood Type Antibody Screen 08/05/16 08/05/16 08/06/16 Range/Units 14:56 15:55 00:47 WBC 2.5 L (4.3-11.1) K/mcL RBC 3.24 L (4.19-5.50) M/mcL Hgb 9.0 L (12.9-16.9) g/dL Hct 28.2 L (37.5-50.1) % MCV 87.0 (83.0-100.0) fL MCH 27.8 L (28.0-33.3) pg MCHC 31.9 (31.6-35.5) g/dL RDW 17.0 H (11.5-14.5) % Plt Count 64 L (140-400) K/mcL MPV 10.1 (9.4-12.4) fL Immature Gran % (0-4) % Seg Neutrophils % % Lymphocytes % % Monocytes % % Eosinophils % % Basophils % % Neutrophils # (1.6-8.9) K/mcL Lymphocytes # (0.6-4.6) K/mcL Monocytes # (0.0-1.3) K/mcL Eosinophils # (0.0-0.6) K/mcL Basophils # (0.0-0.2) K/mcL Immature Plt Fraction 2.4 (1.1-6.1) % PT (9.4-12.1) Seconds INR APTT (26.0-36.0) Seconds Sodium (136-145) mEq/L Potassium (3.5-4.5) mEq/L Chloride (98-109) mEq/L Carbon Dioxide (19-29) mEq/L BUN (8-26) mg/dL Creatinine (0.72-1.25) mg/dL Est GFR ( Amer) (> 60) Est GFR (Non-Af Amer) (> 60) BUN/Creatinine Ratio (6-26) Glucose (70-99) mg/dL Calculated Osmolality (280-300) Calcium (8.6-10.8) mg/dL Stool Occult Blood Positive A (Negative) Blood Type A POSITIVE Antibody Screen NEGATIVE 08/06/16 08/06/16 Range/Units 00:47 04:20 WBC (4.3-11.1) K/mcL RBC (4.19-5.50) M/mcL Hgb 8.8 L (12.9-16.9) g/dL Hct 27.5 L (37.5-50.1) % MCV (83.0-100.0) fL MCH (28.0-33.3) pg MCHC (31.6-35.5) g/dL RDW (11.5-14.5) % Plt Count (140-400) K/mcL MPV (9.4-12.4) fL Immature Gran % (0-4) % Seg Neutrophils % % Lymphocytes % % Monocytes % % Eosinophils % % Basophils % % Neutrophils # (1.6-8.9) K/mcL Lymphocytes # (0.6-4.6) K/mcL Monocytes # (0.0-1.3) K/mcL Eosinophils # (0.0-0.6) K/mcL Basophils # (0.0-0.2) K/mcL Immature Plt Fraction (1.1-6.1) % PT (9.4-12.1) Seconds INR APTT (26.0-36.0) Seconds Sodium 136 (136-145) mEq/L Potassium 3.7 (3.5-4.5) mEq/L Chloride 103 (98-109) mEq/L Carbon Dioxide 25 (19-29) mEq/L BUN 18 (8-26) mg/dL Creatinine 0.96 (0.72-1.25) mg/dL Est GFR ( Amer) > 60 (> 60) Est GFR (Non-Af Amer) > 60 (> 60) BUN/Creatinine Ratio 19 (6-26) Glucose 113 H (70-99) mg/dL Calculated Osmolality 285 (280-300) Calcium 8.6 (8.6-10.8) mg/dL Stool Occult Blood (Negative) Blood Type Antibody Screen Critical Care Time Critical Care Time: Yes Total Critical Care Time: 35 Attestation: The high probability of a clinically significant, sudden or life threatening deterioration of the [] system(s) required my full and direct attention, intervention and personal management. The aggregate critical care time was [] minutes. This time is in addition to time spent performing reported procedures but includes the following: [] Data Review and interpretation [] Patient assessment and monitoring of vital signs [] Documentation [] Medication orders and management
[2016-08-05 15:37] LABS: Hemoglobin 10.1 g/dL (12.9-16.9); Immature Granulocytes % 0.3 % (0-4); Monocytes % 7.7 %
[2016-08-05 15:38] LABS: Basophils % 0.7 %; Hematocrit 32.3 % (37.5-50.1); Immature Platelets 2.7 % (1.1-6.1); Lymphocytes # 0.6 K/mcL (0.6-4.6); Lymphocytes % 19.7 %; Mean Corpuscular HGB Conc 31.3 g/dL (31.6-35.5); Mean Corpuscular Hemoglobin 27.7 pg (28.0-33.3); Mean Corpuscular Volume 88.5 fL (83.0-100.0); Mean Platelet Volume 10.6 fL (9.4-12.4); Monocytes # 0.2 K/mcL (0.0-1.3); Neutrophils # 2.1 K/mcL (1.6-8.9); Red Blood Count 3.65 M/mcL (4.19-5.50); Red Cell Distribution Width 17.1 % (11.5-14.5); Segmented Neutrophils % 70.6 %
[2016-08-05 15:44] LABS: Platelet Count 73 K/mcL (140-400)
[2016-08-05 15:45] LABS: INR 1.2; Prothrombin Time 13.3 Seconds (9.4-12.1)
[2016-08-05 15:47] LABS: Activated Partial Thrombo Time 31.9 Seconds (26.0-36.0)
[2016-08-05 15:54] LABS: BUN/Creatinine Ratio 16 (6-26); Blood Urea Nitrogen 17 mg/dL (8-26); Carbon Dioxide 27 mEq/L (19-29); Chloride 101 mEq/L (98-109); Glucose 115 mg/dL (70-99); Osmolality,Calculated 288 (280-300); Potassium 3.5 mEq/L (3.5-4.5); Sodium 138 mEq/L (136-145); eGFR For African Americans > 60 (> 60); eGFR For Non-African Americans > 60 (> 60)
[2016-08-05] MEDS ORDERED: Pantoprazole 80 MG in 0.9 % Sodium Chloride 50 ML IVPB ONE (15:58)
[2016-08-05] MEDS ORDERED: *HR* Promethazine 25 MG/ML VIAL IVP PRN (21:24)
--- NOTE | 2016-08-05 22:54 | Internal Med History&Physical ---
<CandaceKellie Ann - Last Filed: 08/05/16 22:47> Date of Encounter: 08/05/16 Time of Encounter: 22:47 Assessment and Plan (1) Bleeding per rectum Current visit: Yes Status: Acute likely secondary to sever cirrhosis complicated by portal htn and varices VS stable, afebrile 07/19 CT: with evidence of portal htn, paraesophageal and parigastric varices +stool occult blood Hb 10.1/Hct 32.3, near baseline, will continue to monitor defer to GI (2) Alcoholic cirrhosis of liver with ascites Current visit: No Status: Acute (3) Portal hypertension Current visit: No Status: Chronic (4) Pancytopenia Current visit: No Status: Chronic chronic continue to monitor (5) Urinary retention Current visit: No Status: Resolved continue home med Internal Medicine - H&P: HPI Chief complaint: bright red blood per rectum Admitted From: Home Plans for Post Hospital Care: Home History of present illness: Mr. Paul is a 66 year old male c/o bleeding. PMHx alcoholic liver cirrhosis with ascits, CKD, esophageal variceal bleed s/p banding. Pt c/o bright red blood per rectum, seen streaked in stools and on toilet paper. Pt states that it is made worse with mild straining, nothing improves it. Pt states that it is not associated with abdominal pain, constipation or diarrhea. No change from normal BM. Pt states he has seen Dr. Adams and has planned outpt colonoscopy at beginning of august. Pt denies dark black tarry stools, blood in urine, hemptysis or hemetemesis. Pt denies heart racing, palpitations, lightheadedness , dizziness, syncope, falls, SOB, wheeze, cough, numbness/tingling. Past Med Surg Social Fam HX - Past Medical History Medical history: cirrhosis, other Psychiatric history: no psych history - Social History Smoking Status: Former smoker Smokeless Tobacco Status: No Alcohol use: none, heavy Drug use: none Occupational status: retired Current living situation: Home Activity Level: Independent ambulation - Family History Father Living Status: Hx Family Neurologic Disorders: Yes (CVA) Internal Medicine - H&P: Meds Furosemide [Lasix] 80 mg PO BID 08/05/16 [History] Allergies No Known Allergies Allergy (Verified 07/19/16 21:14) All Systems PM: A 10-system review of systems was performed and is negative for pertinent findings except as documented above in the HPI. - Constitutional Constitutional: no chills, no excessive sweating, no fever(s), no falls, no night sweats - EENT Eyes: no change in vision, no discharge, no pain, no photophobia - Cardiovascular Cardiovascular ROS IM: no chest pain, no diaphoresis, no dyspnea, no lightheadedness, no palpitations, no syncope - Respiratory Respiratory: no cough, no dyspnea, no wheezing, no excessive phlegm production - Gastrointestinal Gastrointestinal: abdominal pain, hematochezia, no change in stool character, no coffee ground emesis, no constipation, no cramping, no diarrhea, no heartburn , no hematemesis, no loose stools, no melena, no nausea, no vomiting - Genitourinary Genitourinary ROS male: no difficulty urinating, no dysuria, no hematuria - Musculoskeletal Musculoskeletal ROS IM: no numbness, no tingling - Integumentary Integumentary IM: no rash, no unusual bruising - Neurological Neurological ROS: no confusion, no convulsions, no focal weakness, no numbness, no tingling, no tremor(s) - Constitutional Vitals: Temp Pulse Resp BP Pulse Ox 98.1 F 89 14 106/73 96 08/05/16 20:54 08/05/16 20:54 08/05/16 20:54 08/05/16 20:54 08/05/16 20:54 General appearance: Present: A&O X 3, pleasant, no acute distress, answers questions appropriately - Head Head exam: Present: atraumatic, normocephalic - Eye Eye exam: Present: PERRL, conjuntiva pink, sclera anicteric Pupils: Present: PERRL - ENT ENT exam: Present: mucous membranes moist - Neck Neck exam general surgery: Present: supple, trachea midline. Absent: lymphadenopathy - Respiratory Respiratory exam: Present: CTAB. Absent: accessory muscle use, chest wall tenderness, respiratory distress, rhonchi, wheezes, tachypnea - Cardiovascular Cardiovascular exam: Present: RRR, +S1, +S2. Absent: diastolic murmur, gallop, rubs, systolic murmur - GI/Abdominal GI/Abdominal exam: Present: distended, normal bowel sounds. Absent: bruit, guarding, hepatomegaly, rebound, rigid, tenderness, no peritoneal signs - Expanded GI/Abdominal Exam GI/Abdominal exam expanded: Present: ascites - Extremities Exam Extremities exam: Present: pedal edema (+2 pitting), warm, radial pulses palpable and symetrical. Absent: calf tenderness, cyanotic, tenderness - Back Exam Back exam: Absent: CVA tenderness (L), CVA tenderness (R) - Neurological Exam Neurological exam: Present: CN II-XII intact, oriented X3, no focal deficits. Absent: facial droop, speech deficit - Skin Skin exam: Absent: cyanosis Additional comments: telangiectasias on abdomen Internal Med - H&P Results - Labs CBC & Chem 7: 08/05/16 14:56 08/05/16 14:56 <Shekhar Serna - Last Filed: 08/06/16 05:08> Internal Medicine - H&P: HPI History of present illness: Mr. Paul is a 66 year old male All Systems PM: A 10-system review of systems was performed and is negative for pertinent findings except as documented above in the HPI. - Constitutional Vitals: Temp Pulse Resp BP Pulse Ox 98.2 F 84 14 97/62 96 08/06/16 04:53 08/06/16 04:53 08/06/16 04:53 08/06/16 04:53 08/06/16 04:53 Internal Med - H&P Results - Labs CBC & Chem 7: 08/06/16 04:20 08/06/16 00:47 Labs: Short CBC 08/06/16 08/06/16 Range/Units 00:47 04:20 WBC 2.5 L (4.3-11.1) K/mcL Hgb 9.0 L 8.8 L (12.9-16.9) g/dL Hct 28.2 L 27.5 L (37.5-50.1) % Plt Count 64 L (140-400) K/mcL BMP 08/06/16 00:47 Sodium 136 Potassium 3.7 Chloride 103 Carbon Dioxide 25 BUN 18 Creatinine 0.96 Glucose 113 H Calcium 8.6 - Attending Attestation I examined this patient and my medical decision-making was reviewed with the SCENE SHIFTER/PA/Advanced Practice Nurse/Resident Physician. I agree with the documented findings, disposition and treatment plan as described except to the extent set forth below. GI bleeding, monitor hemoglobin. Evaluation by endoscopic team.
[2016-08-06 01:10] LABS: Hematocrit 28.2 % (37.5-50.1); Immature Platelets 2.4 % (1.1-6.1); Mean Corpuscular HGB Conc 31.9 g/dL (31.6-35.5); Mean Corpuscular Hemoglobin 27.8 pg (28.0-33.3); Mean Platelet Volume 10.1 fL (9.4-12.4); Red Blood Count 3.24 M/mcL (4.19-5.50)
[2016-08-06 01:24] LABS: BUN/Creatinine Ratio 19 (6-26); Blood Urea Nitrogen 18 mg/dL (8-26); Calcium 8.6 mg/dL (8.6-10.8); Carbon Dioxide 25 mEq/L (19-29); Chloride 103 mEq/L (98-109); Glucose 113 mg/dL (70-99); Osmolality,Calculated 285 (280-300); Potassium 3.7 mEq/L (3.5-4.5); Sodium 136 mEq/L (136-145); eGFR For African Americans > 60 (> 60); eGFR For Non-African Americans > 60 (> 60)
[2016-08-06] MEDS ORDERED: *HR* Morphine 2 MG/ML SYRINGE IVP PRN (04:03)
[2016-08-06] MEDS ORDERED: D5% in 0.45% NACL 1,000 ML IVC SCH (04:15)
[2016-08-06 04:46] LABS: Hematocrit 27.5 % (37.5-50.1); Hemoglobin 8.8 g/dL (12.9-16.9)
[2016-08-06] MEDS: Pantoprazole 40 MG VIAL IVP SCH (06:03)
--- NOTE | 2016-08-06 09:38 | Internal Med Progress Note ---
Date of Encounter: 08/06/16 Time of Encounter: 08:00 - Assessment and plan (1) Lower GI bleed Current Visit: Yes Status: Acute Assessment and plan: Patient had episode of bright red blood per rectum home. Patient with history of urinary cirrhosis complicated by portal hypertension and paraesophageal and paragasric varices status post banding. Hemoccult positive in ED. No bleeding since admission. Patient is hemodinamycally stable. Hemoglobin dropped from 10.1 on admission to 8.8. This could be dilutional due to IV fluid hydration but patient at risk for severe bleeding due to liver cirrhosis ( platelets 64, INR normal). Continue to monitor hemoglobin and vital signs. Surgical team has been consulted for active GI bleed. (2) Acute blood loss anemia Current Visit: Yes Status: Acute Assessment and plan: Hemoglobin dropped from 10.1 on admission to 8.8. This could be dilutional due to IV fluid hydration but patient at risk for severe bleeding due to liver cirrhosis (platelets 64, INR normal). Continue to monitor hemoglobin and vital signs. Surgical team has been consulted for active GI bleed. plan as above. (3) Ascites due to alcoholic cirrhosis Current Visit: Yes Status: Acute Assessment and plan: Patient had removal of 9.6 L of ascitic fluid on 07/20/16 for the first time. Per patient, his abdominal distention is at baseline. Continue to monitor and if needed, he will undergo paracentesis. (4) Alcoholic cirrhosis of liver with ascites Current Visit: No Status: Acute Assessment and plan: Alcoholic cirrhosis of either complicated by portal hypertension with esophageal and gastric varices, refractory ascites, and pancytopenia. resume home dose of lasix (5) Portal hypertension Current Visit: No Status: Chronic (6) Pancytopenia Current Visit: No Status: Chronic Assessment and plan: close monitor. - Subjective Interval history: Patient denies any rectal bleeding. His last episode was at home. She is eating well. - Constitutional Vitals: Temp Pulse Resp BP Pulse Ox 98.2 F 84 14 97/62 96 08/06/16 04:53 08/06/16 04:53 08/06/16 04:53 08/06/16 04:53 08/06/16 04:53 General appearance: Present: cooperative, A&O X 3, pleasant, no acute distress, answers questions appropriately - Eye Eye exam: Present: PERRL, sclera anicteric - Neck Neck exam general surgery: Present: supple, trachea midline. Absent: lymphadenopathy - Respiratory Respiratory exam: Present: CTAB - Cardiovascular Cardiovascular exam: Present: RRR - GI/Abdominal GI/Abdominal exam: Present: distended (Abdominal distention secondary to ascites.), normal bowel sounds, soft. Absent: tenderness - Extremities Exam Extremities exam: Absent: pedal edema - Back Exam Back exam: Absent: CVA tenderness (L), CVA tenderness (R) - Neurological Exam Neurological exam: Present: alert, oriented X3, no focal deficits, strengths equal and symetr throughout. Absent: facial droop, speech deficit - Skin Skin exam: Absent: rash Internal Medicine: Result - Labs CBC & Chem 7: 08/06/16 04:20 08/06/16 00:47 - ABG Interpretation ABG results: PT/INR, D-dimer PT 13.3 Seconds (9.4-12.1) H 08/05/16 14:56 Consult Discharge Plan - Plan Referrals: [facility] [Outside]
[2016-08-06] MEDS ORDERED: Ondansetron 4 MG/2 ML VIAL IVP PRN (09:47)
[2016-08-06] MEDS ORDERED: Polyethylene Glycol 3350 255 GM POWDER PO ONE (09:55)
--- NOTE | 2016-08-06 11:51 | General Surgery Consult Note ---
Date of Encounter: 08/06/16 Time of Encounter: 09:00 Assessment and Plan (1) Alcoholic cirrhosis of liver with ascites Current Visit: No Status: Acute Noted abdominal distention likely consistent with reaccumulation of ascites. Both I and Dr. Morales agreed that a paracentesis should be considered during his hospitalization via interventional radiology. Will discuss with the hospitalist. (2) Bleeding per rectum Current Visit: Yes Status: Acute I discussed this case with Dr. Adams since he is already scheduled for an EGD as an outpatient in August. Dr. Adams would like to consider performing EGD while he is an inpatient taking that his history of rectal bleeding may be related from an upper GI source and not a lower GI source. He had a previous colonoscopy last month in [place] which was unremarkable per the patient. I agree given that the rectal bleeding is bright in color that it is likely upper source given his history and not a lower GI source. I will give him half a canister of MiraLAX/Gatorade to help him have a bowel movement so we can determine whether or not there is any residuals blood in the stool but after speaking with Dr. Adams we would not recommend a colonoscopy especially given the fact he has ascites which would have increased risk of perforation for colonoscopy. History of Present Illness Consult date: 08/06/16 Requesting physician: Dona Berrios History of present illness: The patient is a 66 year old male with a history of alcoholic cirrhosis who is being followed by Dr. Adams. He recently had a paracentesis due to ascites in July of this year and underwent an EGD due to . He is scheduled to have an EGD in early August by Dr. Adams. He presets to [facility] due to a 2 day history of bright red blood per rectum. He states he had two days of rectal bleeding and last had both bleeding and a BM on 08/04/16. He denies any nausea or vomiting and denies any diarrhea or constipation. I've been asked to evaluate the patient regarding this recent history of rectal bleeding. Past Med Surg Social Fam HX - Past Medical History Medical history: cirrhosis, other Psychiatric history: no psych history - Social History Smoking Status: Former smoker Smokeless Tobacco Status: No Alcohol use: none Drug use: none - Family History Father Living Status: Hx Family Neurologic Disorders: Yes (CVA) Medications and Allergies Furosemide [Lasix] 80 mg PO BID 08/05/16 [History] Allergies No Known Allergies Allergy (Verified 07/19/16 21:14) Review of Systems All systems PM: A 10-system review of systems was performed and is negative for pertinent findings except as documented above in the HPI. General Surgery Exam Initial Vital Signs Temp Pulse Resp BP Pulse Ox 97.8 F 88 16 123/82 100 08/05/16 14:23 08/05/16 14:23 08/05/16 14:23 08/05/16 14:23 08/05/16 14:23 - General physical appearance well developed, no distress - Eyes PERRL, normal ocular movement - Neck no masses, trachea midline, no lymphadectomy, no venous distension - Respiratory normal respiratory effort, other (Noted decreased breath sounds bilaterally) - Cardiovascular Cardiovascular exam: Present: RRR, no murmurs/rubs/gallops - Abdomen Abdomen general surgery: Present: bowel sounds present (No pain to palation ), soft, distended (No tympany) - Integumentary Integumentary general surgery: Present: warm and dry - Neurologic Present: CN 2-12 grossly intact - Musculoskeletal Present: other (Mild pitting edema. No cyanosis or clubbing) Exam Initial Vital Signs Temp Pulse Resp BP Pulse Ox 97.8 F 88 16 123/82 100 08/05/16 14:23 08/05/16 14:23 08/05/16 14:23 08/05/16 14:23 08/05/16 14:23 Results - Labs 08/07/16 04:24 08/06/16 00:47 Abnormal lab results WBC 2.5 K/mcL (4.3-11.1) L 08/06/16 00:47 RBC 3.24 M/mcL (4.19-5.50) L 08/06/16 00:47 Hgb 8.8 g/dL (12.9-16.9) L 08/06/16 04:20 Hct 27.5 % (37.5-50.1) L 08/06/16 04:20 MCH 27.8 pg (28.0-33.3) L 08/06/16 00:47 RDW 17.0 % (11.5-14.5) H 08/06/16 00:47 Plt Count 64 K/mcL (140-400) L 08/06/16 00:47 PT 13.3 Seconds (9.4-12.1) H 08/05/16 14:56 Glucose 113 mg/dL (70-99) H 08/06/16 00:47 Stool Occult Blood Positive (Negative) A 08/05/16 15:55 All other labs normal. Consult Discharge Plan - Plan Referrals: [facility] [Outside]
[2016-08-06 14:54] LABS: Hematocrit 29.8 % (37.5-50.1); Hemoglobin 9.5 g/dL (12.9-16.9)
[2016-08-06] MEDS: Furosemide 40 MG TABLET PO SCH (16:55)
[2016-08-06 20:29] LABS: Hematocrit 30.6 % (37.5-50.1); Hemoglobin 9.7 g/dL (12.9-16.9)
[2016-08-07 04:49] LABS: Eosinophils % 2.5 %; Hematocrit 30.1 % (37.5-50.1); Immature Granulocytes % 0.4 % (0-4); Mean Platelet Volume 9.7 fL (9.4-12.4)
[2016-08-07 04:51] LABS: Basophils % 0.8 %; Eosinophils # 0.1 K/mcL (0.0-0.6); Hemoglobin 9.5 g/dL (12.9-16.9); Immature Platelets 1.9 % (1.1-6.1); Lymphocytes # 0.6 K/mcL (0.6-4.6); Lymphocytes % 25.4 %; Mean Corpuscular HGB Conc 31.6 g/dL (31.6-35.5); Mean Corpuscular Hemoglobin 27.8 pg (28.0-33.3); Monocytes # 0.2 K/mcL (0.0-1.3); Monocytes % 8.8 %; Neutrophils # 1.5 K/mcL (1.6-8.9); Red Blood Count 3.42 M/mcL (4.19-5.50); Segmented Neutrophils % 62.1 %
[2016-08-07 04:52] LABS: Platelet Count 68 K/mcL (140-400)
[2016-08-07] MEDS: Pantoprazole 40 MG VIAL IVP SCH (05:59)
[2016-08-07] MEDS: Furosemide 40 MG TABLET PO SCH ×2 (08:59→16:22)
--- NOTE | 2016-08-07 16:14 | Internal Med Progress Note ---
Date of Encounter: 08/07/16 Time of Encounter: 11:15 - Assessment and plan (1) GI bleed Current Visit: Yes Status: Acute Assessment and plan: Patient had episode of bright red blood per rectum at home. Patient with history of liver cirrhosis complicated by portal hypertension and paraesophageal and paragasric varices status post banding. Patient had colonoscopy at [facility] recently and was unremarkable. Hemoccult positive in ED. No bleeding since admission. Patient is hemodinamycally stable. Hemoglobin dropped from 10.1 to 8.8. Patient at risk for severe bleeding due to liver cirrhosis (platelets 64, INR normal). Continue to monitor hemoglobin and vital signs. Appreciate Surgery and GI input. EGD tomorrow. Qualifiers: GI bleed type/associated pathology: unspecified gastrointestinal hemorrhage type Qualified Code(s): K92.2 - Gastrointestinal hemorrhage, unspecified (2) Acute blood loss anemia Current Visit: Yes Status: Acute Assessment and plan: Hemoglobin dropped from 10.1 on admission to 8.8. This could be dilutional due to IV fluid hydration but patient at risk for severe bleeding due to liver cirrhosis (platelets 64, INR normal). Continue to monitor hemoglobin and vital signs. Surgical team has been consulted for active GI bleed. plan as above. (3) Ascites due to alcoholic cirrhosis Current Visit: Yes Status: Acute Assessment and plan: Patient had removal of 9.6 L of ascitic fluid on 07/20/16 for the first time. Worsening of abdominal distension. Paracentesis in AM. (4) Alcoholic cirrhosis of liver with ascites Current Visit: No Status: Acute Assessment and plan: Alcoholic cirrhosis of either complicated by portal hypertension with esophageal and gastric varices, refractory ascites, and pancytopenia. resume home dose of lasix (5) Portal hypertension Current Visit: No Status: Chronic (6) Pancytopenia Current Visit: No Status: Chronic - Subjective Interval history: Patient had a non-bloody BM yesterday. no nausea. no vomiting. He is eating well. - Constitutional Vitals: Temp Pulse Resp BP Pulse Ox 97.8 F 86 15 113/80 98 08/07/16 11:49 08/07/16 11:49 08/07/16 11:49 08/07/16 11:49 08/07/16 11:49 General appearance: Present: cooperative, A&O X 3, pleasant, no acute distress, answers questions appropriately - Neck Neck exam general surgery: Present: supple, trachea midline. Absent: lymphadenopathy - Respiratory Respiratory exam: Present: CTAB - Cardiovascular Cardiovascular exam: Present: RRR - GI/Abdominal GI/Abdominal exam: Present: distended, soft. Absent: tenderness - Extremities Exam Extremities exam: Absent: pedal edema - Back Exam Back exam: Absent: CVA tenderness (L), CVA tenderness (R) - Neurological Exam Neurological exam: Present: alert, oriented X3. Absent: facial droop, speech deficit - Skin Skin exam: Absent: rash Internal Medicine: Result - Labs CBC & Chem 7: 08/07/16 04:24 08/06/16 00:47 Labs: Short CBC 08/06/16 08/07/16 Range/Units 20:22 04:24 WBC 2.4 L (4.3-11.1) K/mcL Hgb 9.7 L 9.5 L (12.9-16.9) g/dL Hct 30.6 L 30.1 L (37.5-50.1) % Plt Count 68 L (140-400) K/mcL Neutrophils # 1.5 L (1.6-8.9) K/mcL - ABG Interpretation ABG results: PT/INR, D-dimer PT 13.3 Seconds (9.4-12.1) H 08/05/16 14:56 Consult Discharge Plan - Plan Referrals: [facility] [Outside]
--- NOTE | 2016-08-07 17:11 | General Surgery Progress Note ---
Date of Encounter: 08/07/16 Time of Encounter: 17:08 - Assessment and Plan (1) Alcoholic cirrhosis of liver with ascites Current Visit: No Status: Acute Noted abdominal distention likely consistent with reaccumulation of ascites. I have discussed the recommendation for a paracentesis with the hospitalist. This would need to be performed by interventional radiology. (2) Bleeding per rectum Current Visit: Yes Status: Acute The patient states that he did have a bowel movement without any rectal bleeding. I once again restated that I believe his history of rectal bleeding is because of an upper GI source and not from the colon. I already added the case on for an EGD tomorrow with Dr. Adams, per his request. Subjective Patient reports: no new complaints, feels better (Denies abdominal pain.) Objective Vital Signs - Last 8 Hours Temp Pulse Resp BP Pulse Ox 08/07/16 16:17 98.2 F 91 15 115/79 97 08/07/16 11:49 97.8 F 86 15 113/80 98 Intake and Output 08/07/16 08/07/16 08/07/16 07:59 15:59 23:59 Intake Total 0 / 0 Output Total 150 / 150 Balance -150 / -150 Intake: Oral 0 / 0 Output: Urine 150 / 150 Other: # Voids 1 Weight 80.3 kg Patient Weight 08/07/16 23:59 Weight 80.3 kg - General physical appearance no distress - Abdomen Abdomen: Present: bowel sounds present, soft, distended (no tympany. Noted fluid wave. ) - Labs 08/07/16 04:24 08/06/16 00:47 Consult Discharge Plan - Plan Referrals: [facility] [Outside]
[2016-08-08 05:20] LABS: Hemoglobin 9.7 g/dL (12.9-16.9); Immature Granulocytes % 0.4 % (0-4)
[2016-08-08 05:22] LABS: Basophils % 1.2 %; Eosinophils # 0.1 K/mcL (0.0-0.6); Hematocrit 30.9 % (37.5-50.1); Immature Platelets 2.6 % (1.1-6.1); Lymphocytes # 0.7 K/mcL (0.6-4.6); Lymphocytes % 28.3 %; Mean Corpuscular HGB Conc 31.4 g/dL (31.6-35.5); Mean Corpuscular Hemoglobin 27.7 pg (28.0-33.3); Mean Corpuscular Volume 88.3 fL (83.0-100.0); Mean Platelet Volume 10.3 fL (9.4-12.4); Monocytes # 0.3 K/mcL (0.0-1.3); Monocytes % 10.5 %; Neutrophils # 1.4 K/mcL (1.6-8.9); Red Cell Distribution Width 17.2 % (11.5-14.5); Segmented Neutrophils % 57.6 %
[2016-08-08 05:38] LABS: BUN/Creatinine Ratio 15 (6-26); Blood Urea Nitrogen 14 mg/dL (8-26); Calcium 8.4 mg/dL (8.6-10.8); Carbon Dioxide 24 mEq/L (19-29); Chloride 104 mEq/L (98-109); Glucose 108 mg/dL (70-99); Magnesium 1.1 mg/dL (1.6-2.6); Osmolality,Calculated 287 (280-300); Potassium 3.1 mEq/L (3.5-4.5); Sodium 138 mEq/L (136-145); eGFR For African Americans > 60 (> 60); eGFR For Non-African Americans > 60 (> 60)
[2016-08-08 05:50] LABS: Platelet Count 68 K/mcL (140-400)
[2016-08-08 05:52] LABS: Anisocytosis 1+ (Not Present); Platelet Estimate Decreased (Normal)
--- NOTE | 2016-08-08 05:52 | Event Note ---
Date of Encounter: 08/08/16 Time of Encounter: 05:[address] Shepard is familiar with this patient (and has been following this patient due to his cirrhosis and history of upper GI bleed) and will be performing the EGD I will be signing off. Thank you
[2016-08-08] MEDS: Pantoprazole 40 MG VIAL IVP SCH (06:06)
--- NOTE | 2016-08-08 06:20 | Electrocardiograph Report ---
[facility] Test Date: 2016-08-05 Pat Name: Mateo Paul Department: 104 Room: 3A34 Gender: M Sizing Sponger: YOEL : 1950 Requested By: Toño Henson Order Number: [id number] Reading MD: Bartolo Conte DO Measurements Intervals [place] Rate: 86 P: 11 UT: 157 QRS: 3 QRSD: 78 T: 4 QT: 341 QTc: 384 Interpretive Statements SINUS RHYTHM LOW QRS VOLTAGE IN PRECORDIAL LEADS NONSPECIFIC T-WAVE ABNORMALITY WARNING: DATA QUALITY MAY AFFECT INTERPRETATION INTERPRETATION BASED ON A DEFAULT AGE OF 40 YEARS Electronically Signed On 08-08-2016 6:18:44 EDT by Bartolo Conte DO
[2016-08-08] MEDS ORDERED: Magnesium Sulfate 2 GM in D5% in Water 100 ML IVPB ONE (07:46)
[2016-08-08] MEDS: Furosemide 40 MG TABLET PO SCH ×2 (08:03→17:05)
--- NOTE | 2016-08-08 09:51 | Internal Med Progress Note ---
<Ree Hernandez - Last Filed: 08/08/16 10:45> Date of Encounter: 08/08/16 Time of Encounter: 08:45 - Assessment and plan (1) GI bleed Current Visit: Yes Status: Acute Assessment and plan: - Reported episodes of bright red blood per rectum at home. - History of liver cirrhosis complicated by portal hypertension and paraesophageal and paragasric varices status post banding. - Recent colonoscopy at [facility] was unremarkable. - Hemoccult positive in ED. - No bleeding since admission and patient remains hemodinamycally stable. - Hemoglobin dropped from 10.1 to 8.8 on 08/06 but stable since. Patient at risk for severe bleeding due to liver cirrhosis (platelets 64, INR normal). - Appreciate GI for planned EGD today. - Possible discharge home later today if EGD is unremarkable and patient gets paracentesis. Qualifiers: GI bleed type/associated pathology: unspecified gastrointestinal hemorrhage type Qualified Code(s): K92.2 - Gastrointestinal hemorrhage, unspecified (2) Ascites due to alcoholic cirrhosis Current Visit: Yes Status: Acute Assessment and plan: - Last paracenteis with removal of 9.6 L of ascitic fluid on 07/20/16 for the first time. - Worsening of abdominal distension. - Appreciate IR for planned paracentesis today. (3) Acute blood loss anemia Current Visit: Yes Status: Acute Assessment and plan: - Hemoglobin dropped from 10.1 on admission to 8.8 on 08/06. - Could be dilutional due to IV fluid hydration but patient at risk for severe bleeding due to liver cirrhosis (platelets 64, INR normal). - Hgb remains stable and patient reports no hematochezia or melena. - Continue to monitor hemoglobin and vital signs. (4) Alcoholic cirrhosis of liver with ascites Current Visit: No Status: Acute Assessment and plan: - Alcoholic cirrhosis of either complicated by portal hypertension with esophageal and gastric varices, refractory ascites, and pancytopenia. - Continue home dose of Lasix (5) Portal hypertension Current Visit: No Status: Chronic (6) Pancytopenia Current Visit: No Status: Chronic Assessment and plan: - Stable. Continue to monitor. - Subjective Interval history: No significant event noted overnight. Patient was seen and examined this morning. Patient reports abdominal fullness and distended but no other complaints. Patient denies fever, chills, nausea, vomiting, diarrhea, abdominal pain, dyspnea, chest pain. Patient is aware of planned EGD and paracentesis today and likes to be discharged home later today if possible. - Constitutional Vitals: Temp Pulse Resp BP Pulse Ox 98.2 F 77 16 109/72 95 08/08/16 07:04 08/08/16 07:04 08/08/16 07:04 08/08/16 07:04 08/08/16 07:04 General appearance: Present: cooperative, A&O X 3, pleasant, no acute distress, answers questions appropriately - Head Head exam: Present: atraumatic, normocephalic - Eye Eye exam: Present: PERRL, conjuntiva pink, sclera anicteric - Neck Neck exam general surgery: Present: supple, trachea midline. Absent: lymphadenopathy - Respiratory Respiratory exam: Present: CTAB. Absent: accessory muscle use, rales, rhonchi, wheezes - Cardiovascular Cardiovascular exam: Present: RRR, +S1, +S2. Absent: diastolic murmur, gallop, rubs, systolic murmur - GI/Abdominal GI/Abdominal exam: Present: distended, normal bowel sounds, soft, no peritoneal signs. Absent: tenderness Additional comments: Positive fluid wave test - Extremities Exam Extremities exam: Present: pedal edema (Mild), warm, radial pulses palpable and symetrical. Absent: calf tenderness, cyanotic - Neurological Exam Neurological exam: Present: CN II-XII intact, oriented X3, no focal deficits. Absent: pronater drift, facial droop, speech deficit - Skin Skin exam: Present: dry, intact. Absent: rash Internal Medicine: Result - Labs CBC & Chem 7: 08/08/16 04:31 08/08/16 04:31 Labs: Short CBC 08/08/16 Range/Units 04:31 WBC 2.5 L (4.3-11.1) K/mcL Hgb 9.7 L (12.9-16.9) g/dL Hct 30.9 L (37.5-50.1) % Plt Count 68 L (140-400) K/mcL Neutrophils # 1.4 L (1.6-8.9) K/mcL BMP 08/08/16 04:31 Sodium 138 Potassium 3.1 L Chloride 104 Carbon Dioxide 24 BUN 14 Creatinine 0.91 Glucose 108 H Calcium 8.4 L - ABG Interpretation ABG results: PT/INR, D-dimer PT 13.3 Seconds (9.4-12.1) H 08/05/16 14:56 Consult Discharge Plan - Plan Instructions: Anemia (GEN) Additional Instructions: Please take ciprofloxacin 500 mg by mouth twice a day for 7 days. Please continue your home medications. Please follow up with your primary care provider at [place] to arrange outpatient paracentesis every 2 weeks. Please follow up with [facility] about the recommended EGD for your grade II esophageal varices. Referrals: [facility] [Outside] - 08/18/16 9:15 am Monico Adams MD [Partnered Physician] - (WEB REQUEST - OFFICE WILL CALL WITH APPPOINTMENT) Prescriptions: Ciprofloxacin [Cipro] 500 mg PO BID #14 tablet <Doan Berrios E - Last Filed: 08/08/16 17:43> - Assessment and plan (1) GI bleed Current Visit: Yes Status: Acute Qualifiers: GI bleed type/associated pathology: unspecified gastrointestinal hemorrhage type Qualified Code(s): K92.2 - Gastrointestinal hemorrhage, unspecified (2) Acute blood loss anemia Current Visit: Yes Status: Acute (3) Ascites due to alcoholic cirrhosis Current Visit: Yes Status: Acute (4) Alcoholic cirrhosis of liver with ascites Current Visit: No Status: Acute (5) Portal hypertension Current Visit: No Status: Chronic (6) Pancytopenia Current Visit: No Status: Chronic - Constitutional Vitals: Temp Pulse Resp BP Pulse Ox 97.8 F 77 16 147/82 99 08/08/16 13:12 08/08/16 15:46 08/08/16 15:46 08/08/16 14:25 08/08/16 15:46 Internal Medicine: Result - Labs CBC & Chem 7: 08/08/16 04:31 08/08/16 04:31 Labs: Short CBC 08/08/16 Range/Units 04:31 WBC 2.5 L (4.3-11.1) K/mcL Hgb 9.7 L (12.9-16.9) g/dL Hct 30.9 L (37.5-50.1) % Plt Count 68 L (140-400) K/mcL Neutrophils # 1.4 L (1.6-8.9) K/mcL BMP 08/08/16 04:31 Sodium 138 Potassium 3.1 L Chloride 104 Carbon Dioxide 24 BUN 14 Creatinine 0.91 Glucose 108 H Calcium 8.4 L Liver Function 08/08/16 Range/Units 09:17 Total Bilirubin 1.1 (0.2-1.2) mg/dL Direct Bilirubin 0.4 (0.0-0.5) mg/dL AST 30 (5-34) Units/L ALT 16 (0-55) Units/L Alkaline Phosphatase 84 (38-126) Units/L Albumin 3.1 L (3.5-5.0) g/dL - ABG Interpretation ABG results: PT/INR, D-dimer PT 13.7 Seconds (9.4-12.1) H 08/08/16 09:17 - Impressions Impressions Paracentesis Ultrasound 08/08/16 09:33 IMPRESSION: Successful ultrasound guided paracentesis. D/ / Miguel Cobian MD / Miguel Cobian MD Interpreting Provider: Miguel Cobian MD - Attending Attestation I examined this patient and reviewed laboratory, imaging and all diagnostic data. My medical decision-making was reviewed with Ree Hanson - Resident Physician. I agree with the documented findings, disposition and treatment plan as described above.
[2016-08-08 10:06] LABS: INR 1.3; Prothrombin Time 13.7 Seconds (9.4-12.1)
[2016-08-08 10:13] LABS: Albumin 3.1 g/dL (3.5-5.0); Albumin/Globulin Ratio 0.9 (1.1-2.2); Bilirubin,Direct 0.4 mg/dL (0.0-0.5); Bilirubin,Indirect 0.7 mg/dL (0.0-1.2); Bilirubin,Total 1.1 mg/dL (0.2-1.2); Globulin 3.3 g/dL (2.4-3.5); Total Protein 6.4 g/dL (6.0-8.3)
--- NOTE | 2016-08-08 13:06 | Anesthesia Evaluation PreOp ---
Date of Encounter: 08/08/16 Time of Encounter: 13:04 - Past History Planned Operation: EGD Cardiac History: Denies any Significant Hx Pulmonary History: Former smoker HEALTHCARE ECONOMICS MANAGER History: Denies Any Significant HX Other Medical History: Hepatic (cirrhosis; hx alcoholism; varices; portal hypertension), Bleeding (GI bleed (upper versus lower)), GERD, Other ( pancytopenia chronic) Anesthesia History: No Prior Anesthetic Complications Alcohol Use: none Drug use: none Medications and Allergies Furosemide [Lasix] 80 mg PO BID 08/05/16 [History] Allergies No Known Allergies Allergy (Verified 07/19/16 21:14) - Meds/Allergy Pre-op Review Medications Reviewed: Yes Allergies Reviewed: Yes Beta Blockers on Current Med List: No Anesthesia Results - Labs 08/08/16 04:31 08/08/16 04:31 - Imaging EKG: report reviewed, image reviewed (SR; low voltage precordial leads) Anesthesia Exam Last Vital Signs Temp 97.8 F 08/08/16 10:19 Pulse 94 08/08/16 10:19 Resp 16 08/08/16 10:19 BP 115/78 08/08/16 10:19 Pulse Ox 92 L 08/08/16 10:19 Weight: 80 kg NPO (# of Hours): >> 8 hrs - HEENT Pupil (Motor): Pupils equal, EOMI Mallampati: III Teeth: Poor dentition Oral Opening: Greater than 3 - HEALTHCARE ECONOMICS MANAGER LOC: Oriented - Cardiac Rhythm: Regular Murmur: None - Pulmonary Breath Sounds: bilateral Clear Respiratory Effort: Symmetrical Anesthesia Assess/Plan ASA Score: 3 Modified Steve Scale for Level of Consciousness: Cooperative, oriented, and tranquil Anesthetic Plan: MAC Monitoring Plan: Standard Monitors Recovery Plan: PACU
[2016-08-08] MEDS ORDERED: Tetracaine/Benzocaine/Butamben 200MG/SPRAY (100SPY/BOT) MM ONE (13:36)
[2016-08-08 14:42] VITALS: BP 147/82
--- NOTE | 2016-08-08 14:56 | Discharge Summary ---
<Ree Hernandez - Last Filed: 08/08/16 15:52> Date of Encounter: 08/08/16 Time of Encounter: 14:20 - Discharge Diagnosis (1) GI bleed Priority: Primary Status: Acute Qualifiers: GI bleed type/associated pathology: unspecified gastrointestinal hemorrhage type Qualified Code(s): K92.2 - Gastrointestinal hemorrhage, unspecified (2) Ascites due to alcoholic cirrhosis Priority: Secondary Status: Acute (3) Acute blood loss anemia Priority: Secondary Status: Acute (4) Alcoholic cirrhosis of liver with ascites Priority: Secondary Status: Acute (5) Portal hypertension Priority: Secondary Status: Chronic (6) Pancytopenia Priority: Secondary Status: Chronic - Discharge Medications Prescriptions: Ciprofloxacin [Cipro] 500 mg PO BID #14 tablet Home Medications: Furosemide [Lasix] 40 mg PO DAILY 08/05/16 [History] Carvedilol [Coreg] 6.25 mg PO BIDWM 08/08/16 [History] Ciprofloxacin [Cipro] 500 mg PO BID #14 tablet 08/08/16 [Rx] Pantoprazole Sodium [Protonix] 40 mg PO DAILY 08/08/16 [History] Spironolactone [Aldactone] 100 mg PO DAILY 08/08/16 [History] Allergies/Adverse Reactions: Allergies No Known Allergies Allergy (Verified 07/19/16 21:14) Procedures/tests Complete & Pending: Procedures Performed prior 72 hours Category Date Time Status IR paracentesis ultrasound [IR] Routine IR 08/08/16 09:33 Taken Date of admission: 08/06/16 05:10 [facility] care physician[facility] Consults: 08/06/16 08:25 Consult to Surgery [CONS] Routine Consulting Provider: Surgery [facility] Reason for Consult: lower GI bleed Call Completed: Yes 08/07/16 17:12 Consult to Gastroenterology [CONS] Stat Consulting Provider: Gastroenterology [place] Reason for Consult: History cirrhosis, UGIB, now with rectal bleeding from likely upper GI source. Patient known to Dr. Adams. Added on for EGD on 08/08/16 per Angie' s request. Time Notified: 08:00 Call Completed: Yes Discharging clinician: Ree Hernandez Anticipated date of discharge: 08/08/16 - Patient Status Disposition: Home, Self-Care Condition: Good Functional capacity at discharge: independent ambulation Overall status at discharge: patient is progressing back to baseline - Discharge Instructions Instructions: Anemia (GEN) Follow Up With: [facility] [Outside] - 08/18/16 9:15 am Monico Adams MD [Partnered Physician] - (WEB REQUEST - OFFICE WILL CALL WITH APPPOINTMENT) Additional Instructions: Please take ciprofloxacin 500 mg by mouth twice a day for 7 days. Please continue your home medications. Please follow up with your primary care provider at [place] to arrange outpatient paracentesis every 2 weeks. Please follow up with [facility] about the recommended EGD for your grade II esophageal varices. - Diet and Activity Activity: increase activity as tolerated Diet: low salt diet Hospital course: Mr. Paul is a 66 year old malewith PMH of alcoholic liver cirrhosis with ascites, esophageal varices and CKD. Patient was admitted on 08/05 for GI bleed with positive stool occult blood test.Patient was started on Protonix 40 mg IV daily. Hemoglobin dropped from 10.1 to 8.8 on 08/06 but stable since and patient reports no hematochezia or melena.EGD by GI on 08/08 found grade II esophageal varices, incompletely eradicated & banded with portal hypertensive gastropathy. EGD with banding x 4 weeks is recommended per GI. Patient also got US-guided paracentesis by IR removed 11 L of ascitic fluid. Patient remains hemodynamically stable after these procedure and verbalized that he wants to go home today. Will discharge patient home with 7-day course of ciprofloxacin 500 mg PO q12H for SBP prophylaxis. Patient was also instructed to continue his home medications. Will have patient follow up with his PCP at [place] to arrange outpatient paracentesis every 2 weeks. Patient will also need to follow up with [facility] about the recommended EGD. - Time Spent with Patient Total time spent providing and/or coordinating discharge services: Greater than 30 minutes - Constitutional Vitals: Temp Pulse Resp BP Pulse Ox 97.8 F 83 20 147/82 97 08/08/16 13:12 08/08/16 14:25 08/08/16 14:25 08/08/16 14:25 08/08/16 13:12 General appearance: Present: cooperative, A&O X 3, pleasant, no acute distress, answers questions appropriately - Head Head exam: Present: atraumatic, normocephalic - Eye Eye exam: Present: PERRL, conjuntiva pink, sclera anicteric - Neck Neck exam general surgery: Present: supple, trachea midline. Absent: lymphadenopathy - Respiratory Respiratory exam: Present: CTAB. Absent: accessory muscle use, rales, rhonchi, wheezes - Cardiovascular Cardiovascular exam: Present: RRR, +S1, +S2. Absent: diastolic murmur, gallop, rubs, systolic murmur - GI/Abdominal GI/Abdominal exam: Present: distended (Significantly reduced after paracentesis. ), normal bowel sounds, soft, no peritoneal signs. Absent: tenderness - Extremities Exam Extremities exam: Present: pedal edema (Mild), warm, radial pulses palpable and symetrical. Absent: calf tenderness, cyanotic - Neurological Exam Neurological exam: Present: CN II-XII intact, oriented X3, no focal deficits. Absent: pronater drift, facial droop, speech deficit - Skin Skin exam: Present: dry, intact <Dona Berrios - Last Filed: 08/08/16 17:49> - Discharge Diagnosis (1) GI bleed Status: Acute Qualifiers: GI bleed type/associated pathology: unspecified gastrointestinal hemorrhage type Qualified Code(s): K92.2 - Gastrointestinal hemorrhage, unspecified (2) Acute blood loss anemia Status: Acute (3) Ascites due to alcoholic cirrhosis Status: Acute (4) Alcoholic cirrhosis of liver with ascites Status: Acute (5) Portal hypertension Status: Chronic (6) Pancytopenia Status: Chronic Procedures/tests Complete & Pending: Procedures Performed prior 72 hours Category Date Time Status IR paracentesis ultrasound [IR] Routine IR 08/08/16 09:33 Completed Date of admission: 08/06/16 05:10 [facility] physician[facility] Consults: 08/06/16 08:25 Consult to Surgery [CONS] Routine Consulting Provider: Surgery [facility] Reason for Consult: lower GI bleed Call Completed: Yes 08/07/16 17:12 Consult to Gastroenterology [CONS] Stat Consulting Provider: [facility] Reason for Consult: History cirrhosis, UGIB, now with rectal bleeding from likely upper GI source. Patient known to Dr. Adams. Added on for EGD on 08/08/16 per Angie' s request. Time Notified: 08:00 Call Completed: Yes Hospital course: Mr. Paul is a 66 year old male - Time Spent with Patient Total time spent providing and/or coordinating discharge services: - Constitutional Vitals: Temp Pulse Resp BP Pulse Ox 97.8 F 77 16 147/82 99 08/08/16 13:12 08/08/16 15:46 08/08/16 15:46 08/08/16 14:25 08/08/16 15:46 - Attending Attestation I examined this patient and reviewed laboratory, imaging and all diagnostic data. My medical decision-making was reviewed with Ree Hanson - Resident Physician. I agree with the documented findings, disposition and treatment plan as described above.
[2016-08-08 16:23] LABS: Source of Body Fluid ascitic fluid
--- NOTE | 2016-08-08 16:36 | Anesthesia Evaluation Post Op ---
Date of Encounter: 08/08/16 Time of Encounter: 15:40 - Vital Signs Vital Signs: Last Vital Signs Temp 97.8 F 08/08/16 13:12 Pulse 77 08/08/16 15:46 Resp 16 08/08/16 15:46 BP 147/82 08/08/16 14:25 Pulse Ox 99 08/08/16 15:46 - Lungs Lungs: Clear Ascult./Percussion - Airway Airway: Non-obstructed - Cardiovascular Regular Rate - Mental Status Mental Status: Alert & Oriented, Answers Appropriately - Pain Pain Scale: 2 - Nausea Vomiting Nausea Vomiting: Not Present - Hydration Hydration: NPO - Discharge PostOp Status: Transfer Patient to floor
[2016-08-08 20:01] LABS: Appearance of Body Fluid Clear (Clear)
[2016-08-08 20:02] LABS: Volume of Body Fluid 60 mL
[2016-08-08] MEDS ORDERED: *HR* Propofol 200 MG/20 ML VIAL IVP ONE (20:55)
[2016-08-08] MEDS ORDERED: Lidocaine -MPF 2% 5 ML VIAL INFILT ONE (20:55)
--- NOTE | 2016-08-10 07:54 | Electrocardiograph Report ---
[place] [id number] Test Date: 2016-08-08 Pat Name: Mateo Paul Department: 115 Room: 3A34 Gender: M Set Up And Charger: LEO : 1950 Requested By: Dona Berrios Order Number: [id number] Reading MD: Colby Parrish MD Measurements Intervals [place] Rate: 81 P: 19 MT: 176 QRS: -4 QRSD: 78 T: 16 QT: 360 QTc: 398 Interpretive Statements SINUS RHYTHM LOW QRS VOLTAGE IN PRECORDIAL LEADS NONSPECIFIC T-WAVE ABNORMALITY Electronically Signed On 08-10-2016 7:52:44 EDT by Colby Parrish MD
== END 2016-08-08 20:56 | disposition home or self-care (01) | DRG 378 ==
LOC: 3ANU 14:20 → EMEROO 14:20 → 3ANU 17:22
PROVIDERS: ADMIT Nurse Practitioner Family; ATTEND Internal Medicine